=== PATIENT | female | born 1940 | race African-American/Black ===

== ENCOUNTER 2019-08-13 15:08 | Inpatient (IN) ==
[2019-08-13 16:01] LABS: Red Cell Distribution Width 13.8 % (9.3-17.3)
[2019-08-13 16:09] LABS: Basophils % 0.6 % (0.0-0.8); Eosinophils # 0.2 10*3/uL (0.0-0.87); Eosinophils % 3.6 % (0.00-10.9); Hematocrit 34.1 VOL% (35.7-47.0); Hemoglobin 10.1 GM/DL (12.0-16.0); Immature Granulocytes % 0.4 %; Immature Granulocytes Absolute 0.02 #; Lymphocytes # 1.1 10*3/uL (1.4-4.0); Lymphocytes % 20.1 % (21.3-54.2); Mean Corpuscular HGB Conc 29.6 GM/DL (32-36); Mean Corpuscular Volume 86.3 FL (87-102); Mean Platelet Volume 11.6 FL (9.6-12.0); Monocytes % 9.5 % (1.7-12.7); Neutrophils % 65.8 % (38.7-73.9); Platelet Count 185 T/CUMM (130-400); Red Blood Count 3.95 MC/CUMM (3.8-5.5); White Blood Count 5.3 T/CUMM (4-12)
[2019-08-13 16:15] LABS: Calcium 8.4 MG/DL (8.5-10.1); Osmolality,Calculated 294.4 MOS/KG (273-304)
[2019-08-13 17:09] LABS: Apearance,Urine CLOUDY (Clear); Bacteria,Urine Occasional /HPF (Few); Bilirubin,Urine Negative (Negative); Blood, Urine Large mg/dL (Negative); Glucose,Urine (UA) Negative (Negative); Hyaline Casts,Urine 1 /LPF (0-3); Ketones,Urine Negative (Negative); Mucus,Urine Occasional /LPF (Occasional); Nitrite,Urine Negative (Negative); Protein,Urine 100 MG/DL; RBC,Urine 82 /HPF (0-4); Squamous Epithelial Cell,Urine Occasional /HPF (0-10); Urine Color Yellow (Yellow); Urine Specific Gravity 1.015 (1.001-1.035); Urine Urobilinogen < 2.0 EU/DL (0.2-1.0); WBC,Urine 22 /HPF (0-6)
[2019-08-13] MEDS ORDERED: cefTRIAXone 250 MG VIAL IV STA (17:19)
[2019-08-13] MEDS ORDERED: ONDANSETRON 4 MG/2 ML VIAL IV PRN (19:25)
[2019-08-13] MEDS ORDERED: ACETAMINOPHEN 325 MG TABLET PO PRN (19:25)
[2019-08-13] MEDS ORDERED: ALBUTEROL 2.5 MG/3 ML NEB RESP TX PRN (19:26)
[2019-08-13] MEDS ORDERED: GLUCAGON 1 MG VIAL IM PRN (19:28)
[2019-08-13] MEDS ORDERED: DEXTROSE 50% 25 GM/50 ML VIAL IV PRN (19:28)
[2019-08-13] MEDS ORDERED: NON-FORMULARY MEDICATION (Albuterol Sulfate [Proair Hfa] 2 PUFF) INH PRN (19:29)
[2019-08-13] MEDS ORDERED: ENOXAPARIN 30 MG/0.3 ML SYRINGE SUBCUT SCH (21:00)
[2019-08-13] MEDS: carvediloL 12.5 MG TABLET PO SCH (22:38)
[2019-08-13] MEDS: guaiFENesin/DM ER 600-30 MG TABLET PO SCH (22:38)
[2019-08-13] MEDS: SODIUM CHLORIDE 0.45% 1,000 ML IV SCH (22:39)
[2019-08-13] MEDS: PIPERACILLIN/TAZOBACTAM 3,375 MG in SODIUM CHLORIDE 0.9% 100 ML IV SCH (22:39)
[2019-08-14] MEDS: PIPERACILLIN/TAZOBACTAM 3,375 MG in SODIUM CHLORIDE 0.9% 100 ML IV SCH ×3 (05:05→21:02)
[2019-08-14 05:52] LABS: Basophils % 0.8 % (0.0-0.8); Eosinophils # 0.2 10*3/uL (0.0-0.87); Eosinophils % 3.8 % (0.00-10.9); Hematocrit 32.3 VOL% (35.7-47.0); Immature Granulocytes % 0.6 %; Immature Granulocytes Absolute 0.03 #; Lymphocytes # 1.2 10*3/uL (1.4-4.0); Lymphocytes % 24.2 % (21.3-54.2); Mean Corpuscular HGB Conc 28.8 GM/DL (32-36); Mean Corpuscular Volume 86.4 FL (87-102); Mean Platelet Volume 11.8 FL (9.6-12.0); Monocytes % 10.7 % (1.7-12.7); Neutrophils % 59.9 % (38.7-73.9); Platelet Count 208 T/CUMM (130-400); Red Blood Count 3.74 MC/CUMM (3.8-5.5); Red Cell Distribution Width 13.7 % (9.3-17.3)
[2019-08-14 06:15] LABS: Albumin 2.6 G/DL (3.4-5.0); Bilirubin,Total 0.7 MG/DL (0.2-1.0); Calcium 8.3 MG/DL (8.5-10.1); Osmolality,Calculated 288.4 MOS/KG (273-304); Risk Ratio 3.17; Total Protein 5.9 G/DL (6.4-8.3); VLDL CHOLESTEROL 14.8 MG/DL
[2019-08-14 06:22] LABS: Hemoglobin 9.5 GM/DL (12.0-16.0)
[2019-08-14 06:34] LABS: Acanthocytes Few; Hypochromasia 1+; Microcytosis 1+; Ovalocytes Few
[2019-08-14 06:35] LABS: Platelet Estimate Normal
[2019-08-14] MEDS: amLODIPine 10 MG TABLET PO SCH (08:53)
[2019-08-14] MEDS: ATORVASTATIN 80 MG TABLET PO SCH (08:53)
[2019-08-14] MEDS: carvediloL 12.5 MG TABLET PO SCH ×2 (08:54→17:35)
[2019-08-14] MEDS: APIXABAN 5 MG TABLET PO SCH ×2 (08:54→21:03)
[2019-08-14] MEDS: PANTOPRAZOLE 40 MG TABLET PO SCH (08:54)
[2019-08-14] MEDS: FUROSEMIDE 20 MG/2 ML VIAL IV SCH ×2 (08:54→17:35)
[2019-08-14] MEDS: guaiFENesin/DM ER 600-30 MG TABLET PO SCH ×2 (08:54→21:03)
[2019-08-14] MEDS: SODIUM CHLORIDE 0.45% 1,000 ML IV SCH (20:36)
[2019-08-15] MEDS: PIPERACILLIN/TAZOBACTAM 3,375 MG in SODIUM CHLORIDE 0.9% 100 ML IV SCH ×3 (04:15→20:24)
[2019-08-15 06:35] LABS: Basophils % 0.7 % (0.0-0.8); Eosinophils # 0.2 10*3/uL (0.0-0.87); Eosinophils % 4.4 % (0.00-10.9); Hematocrit 33.1 VOL% (35.7-47.0); Hemoglobin 9.7 GM/DL (12.0-16.0); Immature Granulocytes % 0.2 %; Immature Granulocytes Absolute 0.01 #; Lymphocytes # 1.3 10*3/uL (1.4-4.0); Lymphocytes % 29.6 % (21.3-54.2); Mean Corpuscular HGB Conc 29.3 GM/DL (32-36); Mean Corpuscular Volume 86.9 FL (87-102); Mean Platelet Volume 11.9 FL (9.6-12.0); Monocytes % 10.6 % (1.7-12.7); Neutrophils % 54.5 % (38.7-73.9); Platelet Count 187 T/CUMM (130-400); Red Blood Count 3.81 MC/CUMM (3.8-5.5); Red Cell Distribution Width 13.7 % (9.3-17.3); White Blood Count 4.3 T/CUMM (4-12)
[2019-08-15 06:41] LABS: Calcium 8.1 MG/DL (8.5-10.1); Osmolality,Calculated 290.1 MOS/KG (273-304)
[2019-08-15] MEDS ORDERED: SODIUM CHLORIDE 0.45% 1,000 ML IV SCH (08:00)
[2019-08-15] MEDS: APIXABAN 5 MG TABLET PO SCH ×2 (09:38→20:24)
[2019-08-15] MEDS: ATORVASTATIN 80 MG TABLET PO SCH (09:38)
[2019-08-15] MEDS: carvediloL 12.5 MG TABLET PO SCH ×2 (09:39→17:54)
[2019-08-15] MEDS: amLODIPine 10 MG TABLET PO SCH (09:39)
[2019-08-15] MEDS: guaiFENesin/DM ER 600-30 MG TABLET PO SCH ×2 (09:39→20:24)
[2019-08-15] MEDS: FUROSEMIDE 20 MG/2 ML VIAL IV SCH ×2 (09:39→15:30)
[2019-08-15] MEDS: PANTOPRAZOLE 40 MG TABLET PO SCH (09:39)
[2019-08-15] MEDS: DEXTROSE 5% NACL 0.45% 1,000 ML IV SCH ×2 (09:45→22:23)
[2019-08-16] MEDS: PIPERACILLIN/TAZOBACTAM 3,375 MG in SODIUM CHLORIDE 0.9% 100 ML IV SCH ×3 (05:14→20:38)
[2019-08-16 06:13] LABS: Calcium 6.2 MG/DL (8.5-10.1); Osmolality,Calculated 316.7 MOS/KG (273-304)
[2019-08-16 06:50] LABS: Basophils % 0.8 % (0.0-0.8); Eosinophils # 0.3 10*3/uL (0.0-0.87); Eosinophils % 5.3 % (0.00-10.9); Hematocrit 30.3 VOL% (35.7-47.0); Immature Granulocytes % 0.4 %; Immature Granulocytes Absolute 0.02 #; Lymphocytes # 1.7 10*3/uL (1.4-4.0); Lymphocytes % 35.1 % (21.3-54.2); Mean Corpuscular HGB Conc 29.7 GM/DL (32-36); Mean Corpuscular Volume 86.6 FL (87-102); Mean Platelet Volume 10.7 FL (9.6-12.0); Monocytes % 11.2 % (1.7-12.7); Neutrophils % 47.2 % (38.7-73.9); Platelet Count 186 T/CUMM (130-400); Red Cell Distribution Width 13.9 % (9.3-17.3); White Blood Count 4.7 T/CUMM (4-12)
[2019-08-16 07:05] LABS: Calcium 7.7 MG/DL (8.5-10.1); Osmolality,Calculated 289.4 MOS/KG (273-304)
[2019-08-16] MEDS: ATORVASTATIN 80 MG TABLET PO SCH (08:57)
[2019-08-16] MEDS: amLODIPine 10 MG TABLET PO SCH (08:57)
[2019-08-16] MEDS: carvediloL 12.5 MG TABLET PO SCH ×2 (08:57→17:59)
[2019-08-16] MEDS: PANTOPRAZOLE 40 MG TABLET PO SCH (08:57)
[2019-08-16] MEDS: APIXABAN 5 MG TABLET PO SCH ×2 (08:57→20:38)
[2019-08-16] MEDS: guaiFENesin/DM ER 600-30 MG TABLET PO SCH ×2 (08:57→20:38)
[2019-08-16] MEDS ORDERED: FUROSEMIDE 20 MG TABLET PO SCH (09:00)
[2019-08-16] MEDS: DEXTROSE 5% NACL 0.45% 1,000 ML IV SCH ×2 (12:52→20:39)
[2019-08-17] MEDS: PIPERACILLIN/TAZOBACTAM 3,375 MG in SODIUM CHLORIDE 0.9% 100 ML IV SCH ×3 (04:53→20:53)
[2019-08-17] MEDS: DEXTROSE 5% NACL 0.45% 1,000 ML IV SCH (04:54)
[2019-08-17 06:40] LABS: Calcium 7.6 MG/DL (8.5-10.1); Osmolality,Calculated 289.4 MOS/KG (273-304)
[2019-08-17] MEDS: APIXABAN 5 MG TABLET PO SCH ×2 (08:46→20:48)
[2019-08-17] MEDS: PANTOPRAZOLE 40 MG TABLET PO SCH (08:46)
[2019-08-17] MEDS: ATORVASTATIN 80 MG TABLET PO SCH (08:47)
[2019-08-17] MEDS: carvediloL 12.5 MG TABLET PO SCH ×2 (08:47→16:02)
[2019-08-17] MEDS: amLODIPine 10 MG TABLET PO SCH (08:47)
[2019-08-17] MEDS: guaiFENesin/DM ER 600-30 MG TABLET PO SCH ×2 (08:47→20:48)
[2019-08-18] MEDS: PIPERACILLIN/TAZOBACTAM 3,375 MG in SODIUM CHLORIDE 0.9% 100 ML IV SCH ×2 (03:14→12:57)
[2019-08-18 05:12] LABS: Basophils # 0.1 10*3/uL (0.0-0.2); Basophils % 0.9 % (0.0-0.8); Eosinophils # 0.4 10*3/uL (0.0-0.87); Eosinophils % 7.4 % (0.00-10.9); Hematocrit 31.5 VOL% (35.7-47.0); Hemoglobin 9.4 GM/DL (12.0-16.0); Immature Granulocytes % 0.6 %; Immature Granulocytes Absolute 0.03 #; Lymphocytes # 1.6 10*3/uL (1.4-4.0); Lymphocytes % 29.5 % (21.3-54.2); Mean Corpuscular HGB Conc 29.8 GM/DL (32-36); Mean Corpuscular Volume 86.1 FL (87-102); Mean Platelet Volume 11.3 FL (9.6-12.0); Monocytes % 10.6 % (1.7-12.7); Platelet Count 217 T/CUMM (130-400); Red Blood Count 3.66 MC/CUMM (3.8-5.5); Red Cell Distribution Width 13.8 % (9.3-17.3); White Blood Count 5.4 T/CUMM (4-12)
[2019-08-18 05:37] LABS: Calcium 7.7 MG/DL (8.5-10.1); Osmolality,Calculated 285.4 MOS/KG (273-304)
[2019-08-18] MEDS: carvediloL 12.5 MG TABLET PO SCH ×2 (09:16→17:00)
[2019-08-18] MEDS: APIXABAN 5 MG TABLET PO SCH ×2 (09:16→21:07)
[2019-08-18] MEDS: amLODIPine 10 MG TABLET PO SCH (09:16)
[2019-08-18] MEDS: ATORVASTATIN 80 MG TABLET PO SCH (09:16)
[2019-08-18] MEDS: PANTOPRAZOLE 40 MG TABLET PO SCH (09:16)
[2019-08-18] MEDS: guaiFENesin/DM ER 600-30 MG TABLET PO SCH ×2 (09:20→21:07)
[2019-08-18] MEDS: AMOXICILLIN/CLAV 500 MG TABLET PO SCH (17:00)
[2019-08-19 05:39] LABS: Basophils % 0.6 % (0.0-0.8); Eosinophils # 0.4 10*3/uL (0.0-0.87); Eosinophils % 6.9 % (0.00-10.9); Hemoglobin 9.8 GM/DL (12.0-16.0); Immature Granulocytes % 0.4 %; Immature Granulocytes Absolute 0.02 #; Lymphocytes # 1.4 10*3/uL (1.4-4.0); Lymphocytes % 28.3 % (21.3-54.2); Mean Corpuscular HGB Conc 29.7 GM/DL (32-36); Mean Corpuscular Volume 85.7 FL (87-102); Mean Platelet Volume 11.5 FL (9.6-12.0); Monocytes % 10.8 % (1.7-12.7); Platelet Count 243 T/CUMM (130-400); Red Blood Count 3.85 MC/CUMM (3.8-5.5); Red Cell Distribution Width 13.9 % (9.3-17.3); White Blood Count 5.1 T/CUMM (4-12)
[2019-08-19 06:00] LABS: Osmolality,Calculated 287.3 MOS/KG (273-304)
[2019-08-19] MEDS: guaiFENesin/DM ER 600-30 MG TABLET PO SCH ×2 (08:44→21:14)
[2019-08-19] MEDS: AMOXICILLIN/CLAV 500 MG TABLET PO SCH (08:45)
[2019-08-19] MEDS: PANTOPRAZOLE 40 MG TABLET PO SCH (08:45)
[2019-08-19] MEDS: carvediloL 12.5 MG TABLET PO SCH ×2 (08:45→17:04)
[2019-08-19] MEDS: amLODIPine 10 MG TABLET PO SCH (08:45)
[2019-08-19] MEDS: ATORVASTATIN 80 MG TABLET PO SCH (08:45)
[2019-08-19] MEDS: APIXABAN 5 MG TABLET PO SCH ×2 (08:45→21:14)
[2019-08-19] MEDS: DEXTROSE 5% NACL 0.45% 1,000 ML IV SCH (10:43)
[2019-08-19] MEDS: ESCITALOPRAM 10 MG TABLET PO SCH (21:14)
[2019-08-20] MEDS: DEXTROSE 5% NACL 0.45% 1,000 ML IV SCH ×2 (00:30→13:55)
[2019-08-20 05:34] LABS: Basophils % 0.4 % (0.0-0.8); Eosinophils # 0.2 10*3/uL (0.0-0.87); Eosinophils % 4.2 % (0.00-10.9); Hematocrit 30.3 VOL% (35.7-47.0); Hemoglobin 8.9 GM/DL (12.0-16.0); Immature Granulocytes % 0.4 %; Immature Granulocytes Absolute 0.02 #; Lymphocytes # 1.2 10*3/uL (1.4-4.0); Lymphocytes % 21.5 % (21.3-54.2); Mean Corpuscular HGB Conc 29.4 GM/DL (32-36); Mean Corpuscular Volume 85.4 FL (87-102); Mean Platelet Volume 11.4 FL (9.6-12.0); Monocytes % 10.8 % (1.7-12.7); Neutrophils % 62.7 % (38.7-73.9); Platelet Count 226 T/CUMM (130-400); Red Blood Count 3.55 MC/CUMM (3.8-5.5); Red Cell Distribution Width 13.8 % (9.3-17.3); White Blood Count 5.5 T/CUMM (4-12)
[2019-08-20 05:56] LABS: Calcium 7.8 MG/DL (8.5-10.1); Osmolality,Calculated 286.7 MOS/KG (273-304)
[2019-08-20] MEDS: APIXABAN 5 MG TABLET PO SCH ×2 (08:24→21:08)
[2019-08-20] MEDS: guaiFENesin/DM ER 600-30 MG TABLET PO SCH ×2 (08:24→21:08)
[2019-08-20] MEDS: amLODIPine 10 MG TABLET PO SCH (08:24)
[2019-08-20] MEDS: carvediloL 12.5 MG TABLET PO SCH ×2 (08:25→17:45)
[2019-08-20] MEDS: ATORVASTATIN 80 MG TABLET PO SCH (08:25)
[2019-08-20] MEDS: PANTOPRAZOLE 40 MG TABLET PO SCH (08:25)
[2019-08-20] MEDS: ESCITALOPRAM 10 MG TABLET PO SCH (21:08)
[2019-08-21] MEDS: DEXTROSE 5% NACL 0.45% 1,000 ML IV SCH (02:36)
[2019-08-21 07:01] LABS: Basophils % 0.8 % (0.0-0.8); Eosinophils # 0.2 10*3/uL (0.0-0.87); Eosinophils % 4.7 % (0.00-10.9); Hematocrit 29.8 VOL% (35.7-47.0); Hemoglobin 8.8 GM/DL (12.0-16.0); Immature Granulocytes % 0.6 %; Immature Granulocytes Absolute 0.03 #; Lymphocytes # 1.3 10*3/uL (1.4-4.0); Mean Corpuscular HGB Conc 29.5 GM/DL (32-36); Mean Corpuscular Volume 85.4 FL (87-102); Mean Platelet Volume 11.6 FL (9.6-12.0); Monocytes % 10.3 % (1.7-12.7); Neutrophils % 56.6 % (38.7-73.9); Platelet Count 240 T/CUMM (130-400); Red Blood Count 3.49 MC/CUMM (3.8-5.5); Red Cell Distribution Width 13.8 % (9.3-17.3); White Blood Count 4.9 T/CUMM (4-12)
[2019-08-21 07:32] LABS: Calcium 7.7 MG/DL (8.5-10.1); Osmolality,Calculated 288.4 MOS/KG (273-304)
[2019-08-21] MEDS: guaiFENesin/DM ER 600-30 MG TABLET PO SCH ×2 (08:20→21:12)
[2019-08-21] MEDS: carvediloL 12.5 MG TABLET PO SCH ×2 (08:21→17:14)
[2019-08-21] MEDS: ATORVASTATIN 80 MG TABLET PO SCH (08:21)
[2019-08-21] MEDS: amLODIPine 10 MG TABLET PO SCH (08:21)
[2019-08-21] MEDS: PANTOPRAZOLE 40 MG TABLET PO SCH (08:21)
[2019-08-21] MEDS: APIXABAN 5 MG TABLET PO SCH ×2 (08:21→21:12)
[2019-08-21] MEDS: DESITIN 4OZ/NYSTATIN 15 GRAM MIXTURE PASTE TOP SCH ×2 (08:49→21:12)
[2019-08-21] MEDS: ESCITALOPRAM 10 MG TABLET PO SCH (21:12)
[2019-08-22 06:56] LABS: Calcium 8.1 MG/DL (8.5-10.1); Osmolality,Calculated 283.4 MOS/KG (273-304)
[2019-08-22] MEDS: amLODIPine 10 MG TABLET PO SCH (08:39)
[2019-08-22] MEDS: APIXABAN 5 MG TABLET PO SCH (08:39)
[2019-08-22] MEDS: ATORVASTATIN 80 MG TABLET PO SCH (08:39)
[2019-08-22] MEDS: guaiFENesin/DM ER 600-30 MG TABLET PO SCH (08:39)
[2019-08-22] MEDS: carvediloL 12.5 MG TABLET PO SCH (08:39)
[2019-08-22] MEDS: PANTOPRAZOLE 40 MG TABLET PO SCH (08:39)
[2019-08-22] MEDS: DESITIN 4OZ/NYSTATIN 15 GRAM MIXTURE PASTE TOP SCH (08:42)
[2019-08-22 12:24] VITALS: BP 126/71
== END 2019-08-22 16:02 | disposition home health service (06) | DRG 637 ==
LOC: EDBD → EDUNIT# → N.ED 15:08 → SUATTDRO 19:28 → N.EDINP 19:28 → N.5E 19:59
PROVIDERS: ADMIT Internal Medicine; ATTEND Internal Medicine

== ENCOUNTER 2019-08-26 11:59 | Observation (INO) ==
[2019-08-26 13:25] LABS: Basophils # 0.1 10*3/uL (0.0-0.2); Basophils % 0.9 % (0.0-0.8); Eosinophils # 0.3 10*3/uL (0.0-0.87); Eosinophils % 4.6 % (0.00-10.9); Hemoglobin 9.7 GM/DL (12.0-16.0); Immature Granulocytes % 0.4 %; Immature Granulocytes Absolute 0.02 #; Lymphocytes # 1.7 10*3/uL (1.4-4.0); Lymphocytes % 29.8 % (21.3-54.2); Mean Corpuscular HGB Conc 29.4 GM/DL (32-36); Mean Corpuscular Volume 84.8 FL (87-102); Mean Platelet Volume 10.6 FL (9.6-12.0); Monocytes % 8.3 % (1.7-12.7); Platelet Count 309 T/CUMM (130-400); Red Blood Count 3.89 MC/CUMM (3.8-5.5); Red Cell Distribution Width 14.2 % (9.3-17.3); White Blood Count 5.6 T/CUMM (4-12)
[2019-08-26 13:45] LABS: Albumin 2.4 G/DL (3.4-5.0); Bilirubin,Total 0.9 MG/DL (0.2-1.0); Calcium 8.5 MG/DL (8.5-10.1); Osmolality,Calculated 288.3 MOS/KG (273-304); Total Protein 6.3 G/DL (6.4-8.3)
[2019-08-26] MEDS ORDERED: ONDANSETRON 4 MG/2 ML VIAL IV PRN (15:38)
[2019-08-26] MEDS ORDERED: ACETAMINOPHEN 325 MG TABLET PO PRN (15:38)
[2019-08-26] MEDS ORDERED: hydrALAZINE 20 MG/1 ML VIAL IV PRN (16:20)
[2019-08-26] MEDS ORDERED: GLUCAGON 1 MG VIAL IM PRN (16:21)
[2019-08-26] MEDS ORDERED: DEXTROSE 10% 25 GM/250 ML BAG IV PRN (16:21)
[2019-08-26] MEDS ORDERED: MAGNESIUM SULF RIDER 4 GM in PREMIX 1 EACH IV PRN (16:22)
[2019-08-26] MEDS ORDERED: MAGNESIUM SULF RIDER 2 GM in PREMIX 1 EACH IV PRN (16:22)
[2019-08-26] MEDS: INSULIN LISPRO 100 UNIT/ML SUBCUT SCH ×2 (17:43→21:47)
[2019-08-26 18:46] LABS: Apearance,Urine CLEAR (Clear); Bacteria,Urine Occasional /HPF (Few); Bilirubin,Urine Negative (Negative); Blood, Urine Small mg/dL (Negative); Glucose,Urine (UA) Negative (Negative); Hyaline Casts,Urine 1 /LPF (0-3); Ketones,Urine Negative (Negative); Mucus,Urine Occasional /LPF (Occasional); Nitrite,Urine Negative (Negative); Protein,Urine 30 MG/DL; RBC,Urine 2 /HPF (0-4); Squamous Epithelial Cell,Urine Occasional /HPF (0-10); Urine Color Yellow (Yellow); Urine Specific Gravity 1.012 (1.001-1.035); Urine Urobilinogen < 2.0 EU/DL (0.2-1.0); WBC,Urine 3 /HPF (0-6)
[2019-08-26] MEDS: APIXABAN 5 MG TABLET PO SCH (21:46)
[2019-08-26] MEDS: ESCITALOPRAM 10 MG TABLET PO SCH (21:46)
[2019-08-26] MEDS: ATORVASTATIN 80 MG TABLET PO SCH (21:46)
[2019-08-26] MEDS: carvediloL 12.5 MG TABLET PO SCH (21:46)
[2019-08-27 06:09] LABS: Basophils % 0.6 % (0.0-0.8); Eosinophils # 0.3 10*3/uL (0.0-0.87); Eosinophils % 5.6 % (0.00-10.9); Hematocrit 31.4 VOL% (35.7-47.0); Hemoglobin 9.3 GM/DL (12.0-16.0); Immature Granulocytes % 0.6 %; Immature Granulocytes Absolute 0.03 #; Lymphocytes # 1.2 10*3/uL (1.4-4.0); Lymphocytes % 26.3 % (21.3-54.2); Mean Corpuscular HGB Conc 29.6 GM/DL (32-36); Mean Corpuscular Volume 85.6 FL (87-102); Mean Platelet Volume 10.5 FL (9.6-12.0); Monocytes % 10.3 % (1.7-12.7); Neutrophils % 56.6 % (38.7-73.9); Platelet Count 281 T/CUMM (130-400); Red Blood Count 3.67 MC/CUMM (3.8-5.5); White Blood Count 4.7 T/CUMM (4-12)
[2019-08-27 06:35] LABS: Albumin 2.1 G/DL (3.4-5.0); Bilirubin,Total 0.6 MG/DL (0.2-1.0); Calcium 8.4 MG/DL (8.5-10.1); Osmolality,Calculated 283.5 MOS/KG (273-304); Thyroid Stimulating Hormone 1.66 uIU/ml (0.358-3.74); Total Protein 5.7 G/DL (6.4-8.3)
[2019-08-27] MEDS: FUROSEMIDE 40 MG/4 ML VIAL IV SCH (08:16)
[2019-08-27] MEDS: APIXABAN 5 MG TABLET PO SCH ×2 (08:16→20:51)
[2019-08-27] MEDS: carvediloL 12.5 MG TABLET PO SCH ×2 (08:22→20:51)
[2019-08-27] MEDS: PANTOPRAZOLE 40 MG TABLET PO SCH (08:22)
[2019-08-27] MEDS: amLODIPine 10 MG TABLET PO SCH (08:23)
[2019-08-27] MEDS: INSULIN LISPRO 100 UNIT/ML SUBCUT SCH ×4 (08:23→20:57)
[2019-08-27] MEDS: ATORVASTATIN 80 MG TABLET PO SCH (20:51)
[2019-08-27] MEDS: ESCITALOPRAM 10 MG TABLET PO SCH (20:51)
[2019-08-28 05:09] LABS: Basophils % 0.6 % (0.0-0.8); Eosinophils # 0.3 10*3/uL (0.0-0.87); Eosinophils % 5.5 % (0.00-10.9); Hematocrit 29.8 VOL% (35.7-47.0); Hemoglobin 8.6 GM/DL (12.0-16.0); Immature Granulocytes % 0.4 %; Immature Granulocytes Absolute 0.02 #; Lymphocytes # 1.4 10*3/uL (1.4-4.0); Lymphocytes % 27.9 % (21.3-54.2); Mean Corpuscular HGB Conc 28.9 GM/DL (32-36); Mean Corpuscular Volume 86.6 FL (87-102); Mean Platelet Volume 10.8 FL (9.6-12.0); Monocytes % 8.6 % (1.7-12.7); Platelet Count 280 T/CUMM (130-400); Red Blood Count 3.44 MC/CUMM (3.8-5.5); Red Cell Distribution Width 14.1 % (9.3-17.3); White Blood Count 4.9 T/CUMM (4-12)
[2019-08-28 05:43] LABS: Ovalocytes Slight; Platelet Estimate Normal; Polychromasia Slight; Schistocytes Few
[2019-08-28 05:46] LABS: Albumin 2.1 G/DL (3.4-5.0); Bilirubin,Total 0.4 MG/DL (0.2-1.0); Calcium 8.4 MG/DL (8.5-10.1); Osmolality,Calculated 283.5 MOS/KG (273-304); Total Protein 5.7 G/DL (6.4-8.3)
[2019-08-28] MEDS: INSULIN LISPRO 100 UNIT/ML SUBCUT SCH ×2 (08:17→12:06)
[2019-08-28] MEDS: APIXABAN 5 MG TABLET PO SCH (08:19)
[2019-08-28] MEDS: carvediloL 12.5 MG TABLET PO SCH (08:19)
[2019-08-28] MEDS: FUROSEMIDE 40 MG/4 ML VIAL IV SCH (08:19)
[2019-08-28] MEDS: PANTOPRAZOLE 40 MG TABLET PO SCH (08:19)
[2019-08-28] MEDS: amLODIPine 10 MG TABLET PO SCH (08:19)
[2019-08-28 12:09] VITALS: BP 130/68
[2019-08-28] MEDS ORDERED: SODIUM POLYSTYRENE SULFATE 15 GM/60 ML BOTTLE PO ONE (12:57)
== END 2019-08-28 18:00 | disposition home health service (06) ==
LOC: EDUNIT# → N.5E 11:59 → N.ED 11:59 → SUATTDRO 16:32 → N.5E 17:08
PROVIDERS: ADMIT Internal Medicine; ATTEND Internal Medicine

== ENCOUNTER 2019-11-30 16:17 | Inpatient (IN) ==
[2019-11-30 17:12] LABS: Basophils % 0.4 % (0.0-0.8); Eosinophils # 0.2 10*3/uL (0.0-0.87); Eosinophils % 2.8 % (0.00-10.9); Hematocrit 32.9 VOL% (35.7-47.0); Hemoglobin 9.8 GM/DL (12.0-16.0); Immature Granulocytes % 0.4 %; Immature Granulocytes Absolute 0.02 #; Lymphocytes # 0.9 10*3/uL (1.4-4.0); Lymphocytes % 16.4 % (21.3-54.2); Mean Corpuscular HGB Conc 29.8 GM/DL (32-36); Mean Corpuscular Volume 82.5 FL (87-102); Mean Platelet Volume 11.1 FL (9.6-12.0); Monocytes % 6.3 % (1.7-12.7); Neutrophils % 73.7 % (38.7-73.9); Platelet Count 285 T/CUMM (130-400); Red Blood Count 3.99 MC/CUMM (3.8-5.5); Red Cell Distribution Width 16.8 % (9.3-17.3); White Blood Count 5.4 T/CUMM (4-12)
[2019-11-30 17:32] LABS: INR 1.1; PT Patient Result 11.9 SECS (9.6-12.2)
[2019-11-30 17:33] LABS: Albumin 2.3 G/DL (3.4-5.0); Bilirubin,Total 0.4 MG/DL (0.2-1.0); Calcium 8.6 MG/DL (8.5-10.1); Osmolality,Calculated 285.1 MOS/KG (273-304); Total Protein 6.8 G/DL (6.4-8.3)
[2019-11-30 17:39] LABS: ABG Base Excess 0.8 MMOL/L (-2.5-2.5); ABG HCO3 25.1 MMOL/L (20-26); ABG Oxygen Saturation 96.4 % (95-100); ABG PCO2 48.1 MM HG (35-48); ABG PH 7.353 (7.35-7.45); ABG PO2 82.9 MM HG (80-95); ABG TCO2 24.7 MMOL/L (23-27)
[2019-11-30] MEDS ORDERED: FUROSEMIDE 100 MG/10 ML VIAL IV STA (17:40)
[2019-11-30] MEDS ORDERED: ALBUTEROL 2.5 MG/3 ML NEB RESP TX PRN (20:16)
[2019-11-30] MEDS ORDERED: INFLUENZA VIRUS VACCINE 0.5 ML SYRINGE IM ONE (21:55)
[2019-11-30 22:23] LABS: Troponin I < 0.015 NG/ML (0.00-0.045)
[2019-11-30] MEDS: ATORVASTATIN 80 MG TABLET PO SCH (22:25)
[2019-11-30] MEDS: ESCITALOPRAM 10 MG TABLET PO SCH (22:25)
[2019-11-30] MEDS: PIPERACILLIN/TAZOBACTAM 3,375 MG in SODIUM CHLORIDE 0.9% 100 ML IV SCH (22:26)
[2019-11-30] MEDS: GABAPENTIN 300 MG CAPSULE PO SCH (22:26)
[2019-11-30] MEDS: APIXABAN 5 MG TABLET PO SCH (22:26)
[2019-11-30] MEDS: carvediloL 12.5 MG TABLET PO SCH (22:26)
[2019-11-30 23:06] LABS: Apearance,Urine CLOUDY (Clear); Bilirubin,Urine Negative (Negative); Blood, Urine Small mg/dL (Negative); Glucose,Urine (UA) Negative (Negative); Ketones,Urine Negative (Negative); Nitrite,Urine Negative (Negative); Protein,Urine Negative; RBC,Urine 12 /HPF (0-4); Urine Color Yellow (Yellow); Urine Specific Gravity 1.009 (1.001-1.035); Urine Urobilinogen < 2.0 EU/DL (0.2-1.0); WBC,Urine 676 /HPF (0-6)
[2019-12-01] MEDS: ALBUTEROL/IPRATROPIUM 3 ML NEB RESP TX SCH ×4 (00:32→19:15)
[2019-12-01] MEDS: PIPERACILLIN/TAZOBACTAM 3,375 MG in SODIUM CHLORIDE 0.9% 100 ML IV SCH ×3 (05:29→21:20)
[2019-12-01 07:13] LABS: Basophils % 0.6 % (0.0-0.8); Eosinophils # 0.2 10*3/uL (0.0-0.87); Eosinophils % 3.5 % (0.00-10.9); Hematocrit 30.1 VOL% (35.7-47.0); Hemoglobin 8.7 GM/DL (12.0-16.0); Immature Granulocytes % 0.8 %; Immature Granulocytes Absolute 0.04 #; Lymphocytes # 0.9 10*3/uL (1.4-4.0); Lymphocytes % 19.3 % (21.3-54.2); Mean Corpuscular HGB Conc 28.9 GM/DL (32-36); Mean Corpuscular Volume 85.3 FL (87-102); Mean Platelet Volume 11.3 FL (9.6-12.0); Monocytes % 9.7 % (1.7-12.7); Neutrophils % 66.1 % (38.7-73.9); Platelet Count 260 T/CUMM (130-400); Red Blood Count 3.53 MC/CUMM (3.8-5.5); Red Cell Distribution Width 16.9 % (9.3-17.3); White Blood Count 4.9 T/CUMM (4-12)
[2019-12-01 07:37] LABS: Albumin 1.9 G/DL (3.4-5.0); Bilirubin,Total 0.5 MG/DL (0.2-1.0); Calcium 8.3 MG/DL (8.5-10.1); Osmolality,Calculated 287.7 MOS/KG (273-304); Risk Ratio 2.38; Total Protein 5.9 G/DL (6.4-8.3); VLDL CHOLESTEROL 12.6 MG/DL
[2019-12-01 07:55] LABS: Troponin I < 0.015 NG/ML (0.00-0.045)
[2019-12-01 08:02] LABS: Hypochromasia 1+; Microcytosis 1+
[2019-12-01 08:03] LABS: Acanthocytes Few; Ovalocytes Slight; Platelet Estimate Normal; Polychromasia Slight
[2019-12-01] MEDS: GABAPENTIN 300 MG CAPSULE PO SCH ×2 (08:53→21:21)
[2019-12-01] MEDS: FUROSEMIDE 40 MG/4 ML VIAL IV SCH ×2 (08:53→16:09)
[2019-12-01] MEDS: PANTOPRAZOLE 40 MG TABLET PO SCH (08:54)
[2019-12-01] MEDS: APIXABAN 5 MG TABLET PO SCH ×2 (08:54→21:21)
[2019-12-01] MEDS: carvediloL 12.5 MG TABLET PO SCH ×2 (08:54→16:09)
[2019-12-01] MEDS: ATORVASTATIN 80 MG TABLET PO SCH (21:20)
[2019-12-01] MEDS: ESCITALOPRAM 10 MG TABLET PO SCH (21:21)
[2019-12-02] MEDS: ALBUTEROL/IPRATROPIUM 3 ML NEB RESP TX SCH ×4 (00:03→19:42)
[2019-12-02] MEDS: PIPERACILLIN/TAZOBACTAM 3,375 MG in SODIUM CHLORIDE 0.9% 100 ML IV SCH ×3 (04:40→21:31)
[2019-12-02 05:01] LABS: Basophils % 0.6 % (0.0-0.8); Eosinophils # 0.2 10*3/uL (0.0-0.87); Eosinophils % 3.5 % (0.00-10.9); Hematocrit 29.1 VOL% (35.7-47.0); Hemoglobin 8.5 GM/DL (12.0-16.0); Immature Granulocytes % 0.4 %; Immature Granulocytes Absolute 0.02 #; Lymphocytes % 18.5 % (21.3-54.2); Mean Corpuscular HGB Conc 29.2 GM/DL (32-36); Mean Corpuscular Volume 83.9 FL (87-102); Mean Platelet Volume 11.1 FL (9.6-12.0); Monocytes % 9.1 % (1.7-12.7); Neutrophils % 67.9 % (38.7-73.9); Platelet Count 259 T/CUMM (130-400); Red Blood Count 3.47 MC/CUMM (3.8-5.5); Red Cell Distribution Width 16.8 % (9.3-17.3); White Blood Count 5.4 T/CUMM (4-12)
[2019-12-02 05:10] LABS: Calcium 7.9 MG/DL (8.5-10.1); Osmolality,Calculated 284.8 MOS/KG (273-304)
[2019-12-02 06:20] LABS: Acanthocytes Moderate; Anisocytosis 1+; Ovalocytes 1+; Platelet Estimate Normal
[2019-12-02] MEDS: GABAPENTIN 300 MG CAPSULE PO SCH ×2 (08:29→21:28)
[2019-12-02] MEDS: FUROSEMIDE 40 MG/4 ML VIAL IV SCH ×2 (08:29→16:28)
[2019-12-02] MEDS: APIXABAN 5 MG TABLET PO SCH ×2 (08:29→21:28)
[2019-12-02] MEDS: PANTOPRAZOLE 40 MG TABLET PO SCH (08:29)
[2019-12-02] MEDS: carvediloL 12.5 MG TABLET PO SCH ×2 (08:29→16:28)
[2019-12-02] MEDS: methylPREDNISolone SOD SUC 40 MG/1 ML VIAL IV SCH ×2 (13:43→21:28)
[2019-12-02] MEDS: ESCITALOPRAM 10 MG TABLET PO SCH (21:28)
[2019-12-02] MEDS: ATORVASTATIN 80 MG TABLET PO SCH (21:28)
[2019-12-03] MEDS: ALBUTEROL/IPRATROPIUM 3 ML NEB RESP TX SCH ×4 (00:06→19:20)
[2019-12-03] MEDS: methylPREDNISolone SOD SUC 40 MG/1 ML VIAL IV SCH ×3 (04:35→20:49)
[2019-12-03] MEDS: PIPERACILLIN/TAZOBACTAM 3,375 MG in SODIUM CHLORIDE 0.9% 100 ML IV SCH ×3 (04:36→20:50)
[2019-12-03 05:56] LABS: Basophils % 0.2 % (0.0-0.8); Hematocrit 28.5 VOL% (35.7-47.0); Hemoglobin 8.5 GM/DL (12.0-16.0); Immature Granulocytes % 0.9 %; Immature Granulocytes Absolute 0.04 #; Lymphocytes # 0.5 10*3/uL (1.4-4.0); Lymphocytes % 11.7 % (21.3-54.2); Mean Corpuscular HGB Conc 29.8 GM/DL (32-36); Mean Corpuscular Volume 83.6 FL (87-102); Mean Platelet Volume 11.8 FL (9.6-12.0); Monocytes % 1.2 % (1.7-12.7); Platelet Count 262 T/CUMM (130-400); Red Blood Count 3.41 MC/CUMM (3.8-5.5); Red Cell Distribution Width 16.5 % (9.3-17.3); White Blood Count 4.3 T/CUMM (4-12)
[2019-12-03 06:07] LABS: Osmolality,Calculated 285.4 MOS/KG (273-304)
[2019-12-03] MEDS: FUROSEMIDE 40 MG/4 ML VIAL IV SCH ×2 (09:02→16:27)
[2019-12-03] MEDS: PANTOPRAZOLE 40 MG TABLET PO SCH (09:03)
[2019-12-03] MEDS: APIXABAN 5 MG TABLET PO SCH ×2 (09:03→20:52)
[2019-12-03] MEDS: carvediloL 12.5 MG TABLET PO SCH ×2 (09:03→16:27)
[2019-12-03] MEDS: GABAPENTIN 300 MG CAPSULE PO SCH ×2 (09:03→20:52)
[2019-12-03] MEDS: hydrALAZINE 10 MG TABLET PO SCH ×2 (12:41→20:52)
[2019-12-03] MEDS: ESCITALOPRAM 10 MG TABLET PO SCH (20:52)
[2019-12-03] MEDS: ATORVASTATIN 80 MG TABLET PO SCH (20:52)
[2019-12-04] MEDS: ALBUTEROL/IPRATROPIUM 3 ML NEB RESP TX SCH ×4 (00:09→19:52)
[2019-12-04] MEDS: methylPREDNISolone SOD SUC 40 MG/1 ML VIAL IV SCH (05:03)
[2019-12-04] MEDS: PIPERACILLIN/TAZOBACTAM 3,375 MG in SODIUM CHLORIDE 0.9% 100 ML IV SCH (05:05)
[2019-12-04 05:58] LABS: Basophils % 0.2 % (0.0-0.8); Hematocrit 29.3 VOL% (35.7-47.0); Hemoglobin 8.5 GM/DL (12.0-16.0); Immature Granulocytes Absolute 0.06 #; Lymphocytes # 0.6 10*3/uL (1.4-4.0); Lymphocytes % 9.5 % (21.3-54.2); Mean Corpuscular Volume 83.7 FL (87-102); Mean Platelet Volume 11.2 FL (9.6-12.0); Neutrophils % 86.3 % (38.7-73.9); Platelet Count 283 T/CUMM (130-400); Red Cell Distribution Width 16.4 % (9.3-17.3)
[2019-12-04 06:14] LABS: Calcium 7.8 MG/DL (8.5-10.1); Osmolality,Calculated 290.4 MOS/KG (273-304)
[2019-12-04] MEDS: PANTOPRAZOLE 40 MG TABLET PO SCH (10:01)
[2019-12-04] MEDS: ISOSORBIDE MONONITRATE 30 MG TABLET PO SCH (10:04)
[2019-12-04] MEDS: GABAPENTIN 300 MG CAPSULE PO SCH ×2 (10:04→20:40)
[2019-12-04] MEDS: carvediloL 12.5 MG TABLET PO SCH ×2 (10:04→17:37)
[2019-12-04] MEDS: hydrALAZINE 10 MG TABLET PO SCH ×2 (10:04→20:41)
[2019-12-04] MEDS: FUROSEMIDE 40 MG/4 ML VIAL IV SCH (10:05)
[2019-12-04] MEDS ORDERED: DEXTROSE 10% 250 ML BAG IV PRN (11:59)
[2019-12-04] MEDS ORDERED: GLUCAGON 1 MG VIAL IM PRN (11:59)
[2019-12-04] MEDS ORDERED: ERTAPENEM 500 MG in SODIUM CHLORIDE 0.9% 100 ML IV SCH (12:00)
[2019-12-04] MEDS: APIXABAN 5 MG TABLET PO SCH ×2 (14:19→20:41)
[2019-12-04] MEDS: INSULIN LISPRO 100 UNIT/ML SUBCUT SCH ×2 (17:37→20:41)
[2019-12-04] MEDS: ATORVASTATIN 80 MG TABLET PO SCH (20:40)
[2019-12-04] MEDS: ESCITALOPRAM 10 MG TABLET PO SCH (20:41)
[2019-12-05] MEDS: ALBUTEROL/IPRATROPIUM 3 ML NEB RESP TX SCH ×3 (01:43→12:30)
[2019-12-05 06:00] LABS: Eosinophils % 0.2 % (0.00-10.9); Hematocrit 27.1 VOL% (35.7-47.0); Hemoglobin 8.1 GM/DL (12.0-16.0); Immature Granulocytes % 0.9 %; Immature Granulocytes Absolute 0.05 #; Lymphocytes # 0.4 10*3/uL (1.4-4.0); Lymphocytes % 7.2 % (21.3-54.2); Mean Corpuscular HGB Conc 29.9 GM/DL (32-36); Mean Corpuscular Volume 82.1 FL (87-102); Mean Platelet Volume 11.8 FL (9.6-12.0); Neutrophils % 84.7 % (38.7-73.9); Platelet Count 254 T/CUMM (130-400); Red Cell Distribution Width 16.3 % (9.3-17.3); White Blood Count 5.8 T/CUMM (4-12)
[2019-12-05 06:17] LABS: Calcium 7.8 MG/DL (8.5-10.1); Osmolality,Calculated 291.1 MOS/KG (273-304)
[2019-12-05 06:28] LABS: Hypochromasia 1+; Lymphocytes 8 % (20-55); Ovalocytes Slight; Platelet Estimate Adequate; Segmented Neutrophils 87 % (50-85); Total Cells Counted 100
[2019-12-05] MEDS ORDERED: predniSONE 20 MG TABLET PO SCH (09:00)
[2019-12-05] MEDS ORDERED: FUROSEMIDE 40 MG TABLET PO SCH (09:00)
[2019-12-05] MEDS: GABAPENTIN 300 MG CAPSULE PO SCH (09:18)
[2019-12-05] MEDS: INSULIN LISPRO 100 UNIT/ML SUBCUT SCH ×3 (09:18→16:52)
[2019-12-05] MEDS: APIXABAN 5 MG TABLET PO SCH (09:18)
[2019-12-05] MEDS: ISOSORBIDE MONONITRATE 30 MG TABLET PO SCH (09:19)
[2019-12-05] MEDS: carvediloL 12.5 MG TABLET PO SCH ×2 (09:19→16:52)
[2019-12-05] MEDS: hydrALAZINE 10 MG TABLET PO SCH (09:19)
[2019-12-05] MEDS ORDERED: SODIUM CHLORIDE 0.9% 1,000 ML IV PRN (12:20)
[2019-12-05] MEDS ORDERED: FUROSEMIDE 40 MG/4 ML VIAL IV ONE (12:23)
[2019-12-05 17:59] VITALS: BP 117/52
[2019-12-05] MEDS ORDERED: hydrALAZINE 25 MG TABLET PO SCH (21:00)
== END 2019-12-05 18:50 | disposition home health service (06) | DRG 189 ==
LOC: EDUNIT# → EDBD → N.ED 16:17 → N.EDINP 20:07 → N.2E 21:14
PROVIDERS: ADMIT Internal Medicine; ATTEND Internal Medicine

== ENCOUNTER 2021-02-06 18:12 | Inpatient (IN) ==
[2021-02-06 19:00] LABS: Basophils % 0.2 % (0.0-0.8); Eosinophils # 0.1 10*3/uL (0.0-0.87); Eosinophils % 2.1 % (0.00-10.9); Hematocrit 18.7 VOL% (35.7-47.0); Immature Granulocytes % 0.4 %; Immature Granulocytes Absolute 0.02 #; Lymphocytes # 0.7 10*3/uL (1.4-4.0); Lymphocytes % 15.4 % (21.3-54.2); Mean Corpuscular Volume 83.1 FL (87-102); Mean Platelet Volume 12.1 FL (9.6-12.0); Monocytes % 13.9 % (1.7-12.7); Platelet Count 151 T/CUMM (130-400); Red Blood Count 2.25 MC/CUMM (3.8-5.5); Red Cell Distribution Width 14.9 % (9.3-17.3); White Blood Count 4.7 T/CUMM (4-12)
[2021-02-06 19:05] LABS: Hemoglobin 5.8 GM/DL (12.0-16.0)
[2021-02-06 19:22] LABS: Bilirubin,Total 0.7 MG/DL (0.2-1.0); Calcium 7.7 MG/DL (8.5-10.1); Osmolality,Calculated 300.7 MOS/KG (273-304); Potassium 5.4 MMOL/L (3.5-5.1); Total Protein 6.1 G/DL (6.4-8.2)
[2021-02-06] MEDS ORDERED: PANTOPRAZOLE INJ 80 MG in SODIUM CHLORIDE 0.9% 100 ML IV ONE (19:31)
[2021-02-06] MEDS ORDERED: PANTOPRAZOLE 40 MG VIAL IV ONE (19:42)
[2021-02-06] MEDS ORDERED: MAGNESIUM SULF RIDER 2 GM/50 ML PREMIX IV PRN (19:48)
[2021-02-06] MEDS ORDERED: MAGNESIUM SULF RIDER 4 GM/100 ML PREMIX IV PRN (19:48)
[2021-02-06] MEDS ORDERED: SODIUM CHLORIDE 0.9% 1,000 ML IV PRN ×2 (19:48→19:57)
[2021-02-06] MEDS ORDERED: ONDANSETRON 4 MG/2 ML VIAL IV PRN (19:48)
[2021-02-06] MEDS ORDERED: DEXTROSE 50% 25 GM/50 ML VIAL IV PRN (19:48)
[2021-02-06] MEDS ORDERED: GLUCAGON 1 MG VIAL IM PRN (19:48)
[2021-02-06 22:20] LABS: Amorphous Crystals,Urine Occasional /HPF (Few); Bilirubin,Urine Negative (Negative); Blood, Urine Negative (Negative); Glucose,Urine (UA) Negative (Negative); Ketones,Urine Negative (Negative); Mucus,Urine Many /LPF (Occasional); Nitrite,Urine Negative (Negative); Protein,Urine Negative; Urine Appearance CLOUDY (Clear); Urine Color Yellow (Yellow); Urine Specific Gravity 1.026 (1.001-1.035); Urine Urobilinogen < 2.0 EU/DL (0.2-1.0)
[2021-02-06] MEDS: INSULIN REGULAR 100 UNIT/ML SUBCUT SCH (22:24)
[2021-02-06] MEDS: PANTOPRAZOLE INJ 200 MG in SODIUM CHLORIDE 0.9% 250 ML IV SCH (23:50)
[2021-02-07] MEDS ORDERED: FUROSEMIDE 40 MG/4 ML VIAL IV ONE (05:31)
[2021-02-07 07:53] LABS: Albumin 1.8 G/DL (3.4-5.0); Bilirubin,Total 0.9 MG/DL (0.2-1.0); Calcium 7.8 MG/DL (8.5-10.1); Osmolality,Calculated 302.5 MOS/KG (273-304); Potassium 5.5 MMOL/L (3.5-5.1); Total Protein 5.9 G/DL (6.4-8.2)
[2021-02-07] MEDS: INSULIN REGULAR 100 UNIT/ML SUBCUT SCH ×4 (10:55→21:18)
[2021-02-07] MEDS: FUROSEMIDE 40 MG/4 ML VIAL IV SCH ×2 (10:56→16:00)
[2021-02-07] MEDS ORDERED: ALBUTEROL 2.5 MG/3 ML NEB RESP TX PRN (11:08)
[2021-02-07 12:12] LABS: Hematocrit 28.8 VOL% (35.7-47.0)
[2021-02-07] MEDS: ATORVASTATIN 80 MG TABLET PO SCH (21:18)
[2021-02-08] MEDS: PANTOPRAZOLE INJ 200 MG in SODIUM CHLORIDE 0.9% 250 ML IV SCH (04:30)
[2021-02-08 06:43] LABS: Basophils % 0.3 % (0.0-0.8); Eosinophils # 0.1 10*3/uL (0.0-0.87); Eosinophils % 1.4 % (0.00-10.9); Hematocrit 29.5 VOL% (35.7-47.0); Hemoglobin 8.8 GM/DL (12.0-16.0); Immature Granulocytes % 0.5 %; Immature Granulocytes Absolute 0.03 #; Lymphocytes # 0.6 10*3/uL (1.4-4.0); Mean Corpuscular HGB Conc 29.8 GM/DL (32-36); Mean Corpuscular Volume 90.8 FL (87-102); Mean Platelet Volume 11.9 FL (9.6-12.0); Monocytes % 11.5 % (1.7-12.7); Neutrophils % 76.3 % (38.7-73.9); Platelet Count 137 T/CUMM (130-400); Red Blood Count 3.25 MC/CUMM (3.8-5.5); Red Cell Distribution Width 15.9 % (9.3-17.3); White Blood Count 5.8 T/CUMM (4-12)
[2021-02-08 07:06] LABS: Calcium 7.9 MG/DL (8.5-10.1); Potassium 5.3 MMOL/L (3.5-5.1)
[2021-02-08 07:47] LABS: Hypochromasia 1+; Microcytosis Slight
[2021-02-08 07:48] LABS: Burr Cells Few; Platelet Estimate Adequate
[2021-02-08] MEDS: INSULIN REGULAR 100 UNIT/ML SUBCUT SCH ×4 (08:12→21:29)
[2021-02-08] MEDS: FUROSEMIDE 40 MG/4 ML VIAL IV SCH ×2 (08:45→16:48)
[2021-02-08] MEDS: ATORVASTATIN 80 MG TABLET PO SCH ×2 (19:47→21:30)
[2021-02-09 03:34] LABS: Bacteria,Urine Occasional /HPF (Few); Bilirubin,Urine Negative (Negative); Blood, Urine Small mg/dL (Negative); Glucose,Urine (UA) Negative (Negative); Hyaline Casts,Urine 4 /LPF (0-3); Ketones,Urine Negative (Negative); Mucus,Urine Occasional /LPF (Occasional); Nitrite,Urine Negative (Negative); Protein,Urine 100 MG/DL; RBC,Urine 3 /HPF (0-4); Squamous Epithelial Cell,Urine Occasional /HPF (0-10); Urine Appearance Slightly Hazy (Clear); Urine Color Yellow (Yellow); Urine Urobilinogen < 2.0 EU/DL (0.2-1.0)
[2021-02-09 04:59] LABS: ABG Base Excess -4.9 MMOL/L (-2.5-2.5); ABG HCO3 20.1 MMOL/L (20-26); ABG Oxygen Saturation 95.6 % (95-100); ABG PCO2 36.6 MM HG (35-48); ABG PH 7.357 (7.35-7.45); ABG TCO2 21.2 MMOL/L (23-27); Allen Test Positive; Pt O2 Delivery Device Room Air
[2021-02-09 05:06] LABS: Basophils % 0.4 % (0.0-0.8); Eosinophils # 0.1 10*3/uL (0.0-0.87); Eosinophils % 1.7 % (0.00-10.9); Hematocrit 26.8 VOL% (35.7-47.0); Hemoglobin 8.2 GM/DL (12.0-16.0); Immature Granulocytes % 0.4 %; Immature Granulocytes Absolute 0.02 #; Lymphocytes # 0.6 10*3/uL (1.4-4.0); Lymphocytes % 12.1 % (21.3-54.2); Mean Corpuscular HGB Conc 30.6 GM/DL (32-36); Mean Corpuscular Volume 87.9 FL (87-102); Mean Platelet Volume 12.2 FL (9.6-12.0); Monocytes % 10.9 % (1.7-12.7); Neutrophils % 74.5 % (38.7-73.9); Platelet Count 158 T/CUMM (130-400); Red Blood Count 3.05 MC/CUMM (3.8-5.5); Red Cell Distribution Width 16.1 % (9.3-17.3); White Blood Count 4.8 T/CUMM (4-12)
[2021-02-09] MEDS: PANTOPRAZOLE INJ 200 MG in SODIUM CHLORIDE 0.9% 250 ML IV SCH (05:30)
[2021-02-09 05:53] LABS: Calcium 8.1 MG/DL (8.5-10.1); Osmolality,Calculated 301.7 MOS/KG (273-304); Potassium 5.3 MMOL/L (3.5-5.1)
[2021-02-09] MEDS: INSULIN REGULAR 100 UNIT/ML SUBCUT SCH ×4 (07:51→20:42)
[2021-02-09] MEDS: FUROSEMIDE 40 MG/4 ML VIAL IV SCH ×2 (08:44→17:16)
[2021-02-09] MEDS: PANTOPRAZOLE 40 MG TABLET PO SCH (20:43)
[2021-02-09] MEDS: ATORVASTATIN 80 MG TABLET PO SCH (20:43)
[2021-02-10 07:41] LABS: Basophils % 0.3 % (0.0-0.8); Eosinophils # 0.1 10*3/uL (0.0-0.87); Eosinophils % 1.7 % (0.00-10.9); Hematocrit 27.1 VOL% (35.7-47.0); Hemoglobin 8.2 GM/DL (12.0-16.0); Immature Granulocytes % 0.3 %; Immature Granulocytes Absolute 0.02 #; Lymphocytes # 0.9 10*3/uL (1.4-4.0); Lymphocytes % 14.4 % (21.3-54.2); Mean Corpuscular HGB Conc 30.3 GM/DL (32-36); Mean Corpuscular Volume 88.3 FL (87-102); Mean Platelet Volume 12.1 FL (9.6-12.0); Monocytes % 11.2 % (1.7-12.7); Neutrophils % 72.1 % (38.7-73.9); Platelet Count 173 T/CUMM (130-400); Red Blood Count 3.07 MC/CUMM (3.8-5.5); Red Cell Distribution Width 16.5 % (9.3-17.3)
[2021-02-10 07:56] LABS: Calcium 8.2 MG/DL (8.5-10.1); Osmolality,Calculated 304.5 MOS/KG (273-304); Potassium 5.1 MMOL/L (3.5-5.1)
[2021-02-10] MEDS: FUROSEMIDE 40 MG/4 ML VIAL IV SCH ×2 (09:49→15:38)
[2021-02-10] MEDS: INSULIN REGULAR 100 UNIT/ML SUBCUT SCH ×4 (09:54→22:11)
[2021-02-10] MEDS ORDERED: SODIUM CHLORIDE 0.9% 1,000 ML IV SCH (10:00)
[2021-02-10] MEDS ORDERED: LIDOCAINE 2% 5 ML VIAL ONE (13:22)
[2021-02-10] MEDS ORDERED: propofoL 200 MG/20 ML VIAL IV ONE (13:22)
[2021-02-10] MEDS ORDERED: ETOMIDATE 20 MG/10 ML VIAL IV ONE (13:22)
[2021-02-10] MEDS: carvediloL 12.5 MG TABLET PO SCH ×2 (15:14→22:11)
[2021-02-10] MEDS: PANTOPRAZOLE 40 MG TABLET PO SCH ×2 (15:14→22:10)
[2021-02-10] MEDS ORDERED: traZODone 50 MG TABLET PO SCH (21:00)
[2021-02-10] MEDS: GABAPENTIN 300 MG CAPSULE PO SCH (22:10)
[2021-02-10] MEDS: ATORVASTATIN 80 MG TABLET PO SCH (22:10)
[2021-02-11 03:18] LABS: ABG Base Excess -4.9 MMOL/L (-2.5-2.5); ABG HCO3 20.3 MMOL/L (20-26); ABG Oxygen Saturation 94.7 % (95-100); ABG PCO2 40.1 MM HG (35-48); ABG PH 7.323 (7.35-7.45); ABG PO2 76.6 MM HG (80-95); ABG TCO2 19.5 MMOL/L (23-27)
[2021-02-11 04:09] LABS: Basophils % 0.4 % (0.0-0.8); Eosinophils % 0.8 % (0.00-10.9); Hematocrit 25.7 VOL% (35.7-47.0); Hemoglobin 7.8 GM/DL (12.0-16.0); Immature Granulocytes % 0.6 %; Immature Granulocytes Absolute 0.03 #; Lymphocytes # 0.5 10*3/uL (1.4-4.0); Lymphocytes % 9.9 % (21.3-54.2); Mean Corpuscular HGB Conc 30.4 GM/DL (32-36); Mean Corpuscular Volume 88.9 FL (87-102); Mean Platelet Volume 11.6 FL (9.6-12.0); Neutrophils % 79.3 % (38.7-73.9); Platelet Count 152 T/CUMM (130-400); Red Blood Count 2.89 MC/CUMM (3.8-5.5); Red Cell Distribution Width 16.7 % (9.3-17.3); White Blood Count 5.2 T/CUMM (4-12)
[2021-02-11 04:58] LABS: Total Protein 5.9 G/DL (6.4-8.2)
[2021-02-11 05:36] LABS: Calcium 8.4 MG/DL (8.5-10.1); Osmolality,Calculated 310.3 MOS/KG (273-304)
[2021-02-11 07:03] LABS: Immunoglobulin A (Chem) 336 MG/DL (70-400); Immunoglobulin G (Chem) 1310 MG/DL (700-1600); Immunoglobulin M (Chem) 133 MG/DL (40-230); Total Protein (Chem) 5.9 G/DL (6.4-8.3)
[2021-02-11 08:49] LABS: Albumin (SPE) 2.6 G/DL (3.2-5.3); Albumin (SPE) Rel % 44.7 %; Alpha 1 (SPE) 0.3 G/DL (0.1-0.4); Alpha 1 (SPE) Rel % 4.8 %; Alpha 2 (SPE) 0.7 G/DL (0.4-1.0); Alpha 2 (SPE) Rel % 12.3 %; Beta (SPE) 0.7 G/DL (0.5-1.1); Beta (SPE) Rel % 12.2 %; Gamma (SPE) 1.5 G/DL (0.7-1.7)
[2021-02-11] MEDS ORDERED: MONTELUKAST 10 MG TABLET PO SCH (09:00)
[2021-02-11] MEDS ORDERED: ESCITALOPRAM 10 MG TABLET PO SCH (09:00)
[2021-02-11] MEDS ORDERED: IRON (CARBONYL)/VIT C/B12/FA TABLET PO SCH (09:00)
[2021-02-11] MEDS: PANTOPRAZOLE 40 MG TABLET PO SCH (09:24)
[2021-02-11] MEDS: INSULIN REGULAR 100 UNIT/ML SUBCUT SCH ×2 (09:24→12:41)
[2021-02-11] MEDS: carvediloL 12.5 MG TABLET PO SCH (09:24)
[2021-02-11] MEDS: GABAPENTIN 300 MG CAPSULE PO SCH (09:24)
[2021-02-11] MEDS: FUROSEMIDE 40 MG/4 ML VIAL IV SCH (09:35)
[2021-02-11 09:51] LABS: Immuno Free Light Chain Lambda 11.62 MG/DL (0.57-2.63); Immuno Free Light Chain Ratio 1.78 MG/DL (0.26-1.65)
[2021-02-11 12:20] LABS: Random Urine Protein (Bench) 123 MG/DL (<11.9)
[2021-02-11 15:38] VITALS: BP 126/59
[2021-02-13 11:54] LABS: Albumin (UPER) Rel% 22.8 %; Alpha 1 (UPER) 2.5 MG/DL; Alpha 2 (UPER) 21.3 MG/DL; Alpha 2 (UPER) Rel % 17.3 %; Beta (UPER) 50.1 MG/DL; Beta (UPER) Rel % 40.7 %; Gamma (UPER) 21.2 MG/DL; Gamma (UPER) Rel % 17.2 %
== END 2021-02-11 16:17 | disposition home health service (06) | DRG 813 ==
LOC: EDUNIT# → N.ED 18:12 → N.EDINP 19:49 → SUATTDRO 19:49 → N.3E 20:17 → N.TELEN 21:12
PROVIDERS: ADMIT Internal Medicine; ATTEND Internal Medicine Geriatric Medicine

== ENCOUNTER 2021-02-13 16:04 | Inpatient (IN) ==
[2021-02-13] MEDS ORDERED: FUROSEMIDE 40 MG/4 ML VIAL IV STA (16:37)
[2021-02-13 16:46] LABS: Basophils % 0.2 % (0.0-0.8); Eosinophils % 0.2 % (0.00-10.9); Hematocrit 30.3 VOL% (35.7-47.0); Hemoglobin 9.5 GM/DL (12.0-16.0); Immature Granulocytes % 0.7 %; Immature Granulocytes Absolute 0.04 #; Lymphocytes # 0.6 10*3/uL (1.4-4.0); Lymphocytes % 10.3 % (21.3-54.2); Mean Corpuscular HGB Conc 31.4 GM/DL (32-36); Mean Corpuscular Volume 85.8 FL (87-102); Mean Platelet Volume 12.2 FL (9.6-12.0); Monocytes % 8.4 % (1.7-12.7); Neutrophils % 80.2 % (38.7-73.9); Platelet Count 132 T/CUMM (130-400); Red Blood Count 3.53 MC/CUMM (3.8-5.5); Red Cell Distribution Width 17.1 % (9.3-17.3); White Blood Count 5.8 T/CUMM (4-12)
[2021-02-13 17:18] LABS: Albumin 1.9 G/DL (3.4-5.0); Bilirubin,Total 1.7 MG/DL (0.2-1.0); Calcium 8.3 MG/DL (8.5-10.1); Osmolality,Calculated 309.4 MOS/KG (273-304); Potassium 5.3 MMOL/L (3.5-5.1); Total Protein 6.2 G/DL (6.4-8.2)
[2021-02-13] MEDS ORDERED: NICOTINE 21 MG/24 HR PATCH TRANSDERM PRN (18:01)
[2021-02-13] MEDS ORDERED: ONDANSETRON 4 MG/2 ML VIAL IV PRN (18:01)
[2021-02-13] MEDS ORDERED: DEXTROSE 50% 25 GM/50 ML VIAL IV PRN ×2 (18:01)
[2021-02-13] MEDS ORDERED: guaiFENesin/DM ER 600-30 MG TABLET PO PRN (18:01)
[2021-02-13] MEDS ORDERED: diphenhydrAMINE CAP 25 MG CAPSULE PO PRN (18:01)
[2021-02-13] MEDS ORDERED: BISACODYL 5 MG TABLET PO PRN (18:01)
[2021-02-13] MEDS ORDERED: GLUCAGON 1 MG VIAL IM PRN ×2 (18:01)
[2021-02-13] MEDS ORDERED: DOCUSATE SODIUM 100 MG CAPSULE PO PRN (18:01)
[2021-02-13] MEDS ORDERED: ACETAMINOPHEN 325 MG TABLET PO PRN (18:01)
[2021-02-13] MEDS ORDERED: hydrALAZINE 20 MG/1 ML VIAL IV PRN (18:01)
[2021-02-13] MEDS ORDERED: ZALEPLON 5 MG CAPSULE PO PRN (18:01)
[2021-02-13] MEDS ORDERED: ENOXAPARIN 100 MG/ML SYRINGE SUBCUT STA (18:03)
[2021-02-13 18:25] LABS: Bilirubin,Urine Negative (Negative); Blood, Urine Moderate mg/dL (Negative); Glucose,Urine (UA) Negative (Negative); Ketones,Urine Negative (Negative); Nitrite,Urine Negative (Negative); Protein,Urine 100 MG/DL; RBC,Urine 28 /HPF (0-4); Urine Appearance CLOUDY (Clear); Urine Color Yellow (Yellow); Urine Specific Gravity 1.012 (1.001-1.035); Urine Urobilinogen < 2.0 EU/DL (0.2-1.0)
[2021-02-13] MEDS: ALBUTEROL/IPRATROPIUM 3 ML NEB RESP TX SCH (19:28)
[2021-02-13] MEDS: INSULIN LISPRO 100 UNIT/ML SUBCUT SCH (20:34)
[2021-02-13] MEDS: cefTRIAXone 1,000 MG in SODIUM CHLORIDE 0.9% 100 ML IV SCH (22:16)
[2021-02-14] MEDS: ALBUTEROL/IPRATROPIUM 3 ML NEB RESP TX SCH ×4 (01:12→19:24)
[2021-02-14 06:16] LABS: Basophils % 0.4 % (0.0-0.8); Eosinophils # 0.1 10*3/uL (0.0-0.87); Eosinophils % 1.1 % (0.00-10.9); Hematocrit 23.3 VOL% (35.7-47.0); Immature Granulocytes % 0.6 %; Immature Granulocytes Absolute 0.03 #; Lymphocytes # 0.7 10*3/uL (1.4-4.0); Lymphocytes % 13.7 % (21.3-54.2); Mean Corpuscular HGB Conc 31.3 GM/DL (32-36); Mean Platelet Volume 11.8 FL (9.6-12.0); Monocytes % 9.5 % (1.7-12.7); Neutrophils % 74.7 % (38.7-73.9); Platelet Count 155 T/CUMM (130-400); Red Cell Distribution Width 16.9 % (9.3-17.3); White Blood Count 5.4 T/CUMM (4-12)
[2021-02-14 06:20] LABS: Hemoglobin 7.3 GM/DL (12.0-16.0); Red Blood Count 2.71 MC/CUMM (3.8-5.5)
[2021-02-14 06:36] LABS: Albumin 1.8 G/DL (3.4-5.0); Bilirubin,Total 0.9 MG/DL (0.2-1.0); Calcium 8.3 MG/DL (8.5-10.1); Osmolality,Calculated 312.3 MOS/KG (273-304); Potassium 4.6 MMOL/L (3.5-5.1); Thyroid Stimulating Hormone 1.32 uIU/ml (0.358-3.74); Total Protein 5.8 G/DL (6.4-8.2)
[2021-02-14] MEDS: INSULIN LISPRO 100 UNIT/ML SUBCUT SCH ×4 (07:49→21:46)
[2021-02-14] MEDS: PANTOPRAZOLE 40 MG TABLET PO SCH (09:25)
[2021-02-14] MEDS: cefTRIAXone 1,000 MG in SODIUM CHLORIDE 0.9% 100 ML IV SCH (21:46)
[2021-02-15] MEDS: ALBUTEROL/IPRATROPIUM 3 ML NEB RESP TX SCH ×4 (00:38→19:40)
[2021-02-15] MEDS: INSULIN LISPRO 100 UNIT/ML SUBCUT SCH ×4 (07:42→21:23)
[2021-02-15] MEDS: PANTOPRAZOLE 40 MG TABLET PO SCH (08:21)
[2021-02-15 08:48] LABS: Basophils % 0.2 % (0.0-0.8); Eosinophils # 0.1 10*3/uL (0.0-0.87); Eosinophils % 1.7 % (0.00-10.9); Hematocrit 23.5 VOL% (35.7-47.0); Hemoglobin 7.2 GM/DL (12.0-16.0); Immature Granulocytes % 0.6 %; Immature Granulocytes Absolute 0.03 #; Lymphocytes # 0.6 10*3/uL (1.4-4.0); Lymphocytes % 11.5 % (21.3-54.2); Mean Corpuscular HGB Conc 30.6 GM/DL (32-36); Mean Platelet Volume 11.2 FL (9.6-12.0); Monocytes % 9.2 % (1.7-12.7); Neutrophils % 76.8 % (38.7-73.9); Platelet Count 161 T/CUMM (130-400); Red Cell Distribution Width 16.9 % (9.3-17.3); White Blood Count 5.2 T/CUMM (4-12)
[2021-02-15 09:13] LABS: Calcium 8.2 MG/DL (8.5-10.1); Osmolality,Calculated 311.4 MOS/KG (273-304); Potassium 4.6 MMOL/L (3.5-5.1)
[2021-02-15] MEDS: cefTRIAXone 1,000 MG in SODIUM CHLORIDE 0.9% 100 ML IV SCH (21:23)
[2021-02-16] MEDS: ALBUTEROL/IPRATROPIUM 3 ML NEB RESP TX SCH ×4 (01:35→19:07)
[2021-02-16 05:24] LABS: Basophils % 0.3 % (0.0-0.8); Eosinophils # 0.1 10*3/uL (0.0-0.87); Eosinophils % 1.7 % (0.00-10.9); Hematocrit 22.8 VOL% (35.7-47.0); Immature Granulocytes % 0.5 %; Immature Granulocytes Absolute 0.03 #; Lymphocytes # 0.7 10*3/uL (1.4-4.0); Lymphocytes % 11.3 % (21.3-54.2); Mean Corpuscular HGB Conc 30.7 GM/DL (32-36); Mean Corpuscular Volume 87.4 FL (87-102); Monocytes % 9.9 % (1.7-12.7); Neutrophils % 76.3 % (38.7-73.9); Platelet Count 147 T/CUMM (130-400); Red Blood Count 2.61 MC/CUMM (3.8-5.5); Red Cell Distribution Width 17.2 % (9.3-17.3); White Blood Count 5.9 T/CUMM (4-12)
[2021-02-16 05:38] LABS: Calcium 7.9 MG/DL (8.5-10.1); Osmolality,Calculated 311.3 MOS/KG (273-304); Potassium 4.7 MMOL/L (3.5-5.1)
[2021-02-16] MEDS: INSULIN LISPRO 100 UNIT/ML SUBCUT SCH ×4 (08:01→20:58)
[2021-02-16] MEDS: PANTOPRAZOLE 40 MG TABLET PO SCH (08:19)
[2021-02-16] MEDS: metOLazone 5 MG TABLET PO SCH (10:28)
[2021-02-16] MEDS: FUROSEMIDE 100 MG/10 ML VIAL IV SCH ×3 (10:36→20:58)
[2021-02-16 17:35] LABS: Creatinine Clearance Urine 1.72 ML/MIN (70-115)
[2021-02-16] MEDS: cefTRIAXone 1,000 MG in SODIUM CHLORIDE 0.9% 100 ML IV SCH (20:58)
[2021-02-17] MEDS: ALBUTEROL/IPRATROPIUM 3 ML NEB RESP TX SCH ×4 (01:28→19:04)
[2021-02-17 05:47] LABS: Calcium 7.8 MG/DL (8.5-10.1); Osmolality,Calculated 311.4 MOS/KG (273-304); Potassium 4.5 MMOL/L (3.5-5.1)
[2021-02-17] MEDS: INSULIN LISPRO 100 UNIT/ML SUBCUT SCH ×4 (07:38→21:20)
[2021-02-17] MEDS: PANTOPRAZOLE 40 MG TABLET PO SCH (09:26)
[2021-02-17] MEDS: metOLazone 5 MG TABLET PO SCH (09:27)
[2021-02-17] MEDS: FUROSEMIDE 100 MG/10 ML VIAL IV SCH ×3 (09:40→21:28)
[2021-02-17] MEDS: cefTRIAXone 1,000 MG in SODIUM CHLORIDE 0.9% 100 ML IV SCH (21:28)
[2021-02-18] MEDS: ALBUTEROL/IPRATROPIUM 3 ML NEB RESP TX SCH ×4 (01:01→19:36)
[2021-02-18 06:08] LABS: Basophils % 0.5 % (0.0-0.8); Eosinophils # 0.1 10*3/uL (0.0-0.87); Eosinophils % 1.6 % (0.00-10.9); Hematocrit 23.1 VOL% (35.7-47.0); Hemoglobin 7.1 GM/DL (12.0-16.0); Immature Granulocytes % 0.5 %; Immature Granulocytes Absolute 0.03 #; Lymphocytes # 0.7 10*3/uL (1.4-4.0); Lymphocytes % 11.3 % (21.3-54.2); Mean Corpuscular HGB Conc 30.7 GM/DL (32-36); Mean Corpuscular Volume 87.8 FL (87-102); Mean Platelet Volume 11.4 FL (9.6-12.0); Monocytes % 8.4 % (1.7-12.7); Neutrophils % 77.7 % (38.7-73.9); Platelet Count 162 T/CUMM (130-400); Red Blood Count 2.63 MC/CUMM (3.8-5.5); Red Cell Distribution Width 17.1 % (9.3-17.3); White Blood Count 5.7 T/CUMM (4-12)
[2021-02-18 06:35] LABS: Osmolality,Calculated 312.3 MOS/KG (273-304); Potassium 4.5 MMOL/L (3.5-5.1)
[2021-02-18] MEDS: INSULIN LISPRO 100 UNIT/ML SUBCUT SCH ×4 (08:04→20:51)
[2021-02-18] MEDS: PANTOPRAZOLE 40 MG TABLET PO SCH (08:07)
[2021-02-18] MEDS: metOLazone 5 MG TABLET PO SCH (08:07)
[2021-02-18] MEDS: FUROSEMIDE 100 MG/10 ML VIAL IV SCH ×3 (13:37→20:55)
[2021-02-18] MEDS: cefTRIAXone 1,000 MG in SODIUM CHLORIDE 0.9% 100 ML IV SCH (20:55)
[2021-02-19] MEDS: ALBUTEROL/IPRATROPIUM 3 ML NEB RESP TX SCH ×3 (00:18→12:40)
[2021-02-19 06:41] LABS: Basophils % 0.4 % (0.0-0.8); Eosinophils # 0.1 10*3/uL (0.0-0.87); Eosinophils % 1.6 % (0.00-10.9); Hematocrit 23.6 VOL% (35.7-47.0); Hemoglobin 7.3 GM/DL (12.0-16.0); Immature Granulocytes % 0.5 %; Immature Granulocytes Absolute 0.03 #; Lymphocytes # 0.7 10*3/uL (1.4-4.0); Lymphocytes % 12.4 % (21.3-54.2); Mean Corpuscular HGB Conc 30.9 GM/DL (32-36); Mean Corpuscular Volume 87.4 FL (87-102); Mean Platelet Volume 10.6 FL (9.6-12.0); Monocytes % 9.5 % (1.7-12.7); Neutrophils % 75.6 % (38.7-73.9); Platelet Count 182 T/CUMM (130-400); Red Cell Distribution Width 17.2 % (9.3-17.3); White Blood Count 5.7 T/CUMM (4-12)
[2021-02-19 07:01] LABS: Calcium 8.1 MG/DL (8.5-10.1); Osmolality,Calculated 312.4 MOS/KG (273-304); Potassium 4.3 MMOL/L (3.5-5.1)
[2021-02-19] MEDS: INSULIN LISPRO 100 UNIT/ML SUBCUT SCH ×3 (08:06→15:31)
[2021-02-19] MEDS: PANTOPRAZOLE 40 MG TABLET PO SCH (08:36)
[2021-02-19] MEDS: metOLazone 5 MG TABLET PO SCH (08:36)
[2021-02-19] MEDS: FUROSEMIDE 100 MG/10 ML VIAL IV SCH ×2 (08:36→14:37)
[2021-02-19 16:02] VITALS: BP 129/53
== END 2021-02-19 17:32 | disposition home or self-care (01) | DRG 291 ==
LOC: EDUNIT# → EDBD → N.ED 16:04 → N.EDINP 16:04 → N.TELEN 19:40 → SUATTDRO 02-16 14:52
PROVIDERS: ADMIT Internal Medicine Geriatric Medicine; ATTEND Internal Medicine

== ENCOUNTER 2021-03-10 15:20 | Inpatient (IN) ==
[2021-03-10 16:25] LABS: Eosinophils # 0.1 10*3/uL (0.0-0.87); Eosinophils % 2.5 % (0.00-10.9); Hematocrit 21.7 VOL% (35.7-47.0); Hemoglobin 6.7 GM/DL (12.0-16.0); Immature Granulocytes % 0.5 %; Immature Granulocytes Absolute 0.02 #; Lymphocytes # 0.7 10*3/uL (1.4-4.0); Lymphocytes % 16.8 % (21.3-54.2); Mean Corpuscular HGB Conc 30.9 GM/DL (32-36); Mean Corpuscular Volume 83.8 FL (87-102); Mean Platelet Volume 11.6 FL (9.6-12.0); Monocytes % 7.5 % (1.7-12.7); Neutrophils % 71.7 % (38.7-73.9); Platelet Count 288 T/CUMM (130-400); Red Blood Count 2.59 MC/CUMM (3.8-5.5)
[2021-03-10 16:36] LABS: Albumin 2.2 G/DL (3.4-5.0); Bilirubin,Total 0.5 MG/DL (0.2-1.0); Calcium 7.9 MG/DL (8.5-10.1); Potassium 3.4 MMOL/L (3.5-5.1); Total Protein 7.3 G/DL (6.4-8.2)
[2021-03-10 17:15] LABS: Bilirubin,Urine Negative (Negative); Blood, Urine Small mg/dL (Negative); Glucose,Urine (UA) Negative (Negative); Ketones,Urine Negative (Negative); Nitrite,Urine Negative (Negative); Protein,Urine 30 MG/DL; Squamous Epithelial Cell,Urine Occasional /HPF (0-10); Urine Appearance CLOUDY (Clear); Urine Color Yellow (Yellow); Urine Specific Gravity 1.009 (1.001-1.035); Urine Urobilinogen < 2.0 EU/DL (0.2-1.0)
[2021-03-10] MEDS ORDERED: ZALEPLON 5 MG CAPSULE PO PRN (18:32)
[2021-03-10] MEDS ORDERED: GLUCAGON 1 MG VIAL IM PRN (18:32)
[2021-03-10] MEDS ORDERED: DEXTROSE 50% 25 GM/50 ML VIAL IV PRN (18:32)
[2021-03-10] MEDS ORDERED: SODIUM CHLORIDE 0.9% 1,000 ML IV PRN (18:50)
[2021-03-10] MEDS ORDERED: ALBUTEROL 2.5 MG/3 ML NEB RESP TX PRN (19:18)
[2021-03-10 19:39] LABS: Folate 11.48 NG/ML (5.38-24.0); Vitamin B12 1417 PG/ML (211-911)
[2021-03-10] MEDS: HEPARIN 5,000 UNIT/1 ML VIAL SUBCUT SCH (20:00)
[2021-03-10] MEDS: LACTULOSE 20 GM/30 ML UDCUP PO SCH ×2 (20:00→23:57)
[2021-03-10 20:22] LABS: Basophils % 0.8 % (0.0-0.8); Eosinophils # 0.1 10*3/uL (0.0-0.87); Eosinophils % 1.6 % (0.00-10.9); Hematocrit 25.1 VOL% (35.7-47.0); Hemoglobin 7.8 GM/DL (12.0-16.0); Immature Granulocytes % 0.5 %; Immature Granulocytes Absolute 0.02 #; Lymphocytes # 0.7 10*3/uL (1.4-4.0); Lymphocytes % 18.7 % (21.3-54.2); Mean Corpuscular HGB Conc 31.1 GM/DL (32-36); Mean Corpuscular Volume 83.1 FL (87-102); Mean Platelet Volume 11.5 FL (9.6-12.0); Monocytes % 7.3 % (1.7-12.7); Neutrophils % 71.1 % (38.7-73.9); Platelet Count 256 T/CUMM (130-400); Red Blood Count 3.02 MC/CUMM (3.8-5.5); Red Cell Distribution Width 17.2 % (9.3-17.3); White Blood Count 3.7 T/CUMM (4-12)
[2021-03-10 21:33] LABS: Sedimentation Rate-Westergren 122 MM/HR (0-30)
[2021-03-10] MEDS: ATORVASTATIN 80 MG TABLET PO SCH (23:56)
[2021-03-10] MEDS: traZODone 50 MG TABLET PO SCH (23:57)
[2021-03-11] MEDS: LACTULOSE 20 GM/30 ML UDCUP PO SCH ×5 (03:54→22:07)
[2021-03-11 07:06] LABS: Basophils % 0.7 % (0.0-0.8); Eosinophils % 0.7 % (0.00-10.9); Hematocrit 23.2 VOL% (35.7-47.0); Hemoglobin 7.5 GM/DL (12.0-16.0); Immature Granulocytes % 0.4 %; Immature Granulocytes Absolute 0.01 #; Lymphocytes # 0.5 10*3/uL (1.4-4.0); Lymphocytes % 18.4 % (21.3-54.2); Mean Corpuscular HGB Conc 32.3 GM/DL (32-36); Mean Corpuscular Volume 81.4 FL (87-102); Mean Platelet Volume 10.7 FL (9.6-12.0); Monocytes % 7.6 % (1.7-12.7); Neutrophils % 72.2 % (38.7-73.9); Platelet Count 242 T/CUMM (130-400); Red Blood Count 2.85 MC/CUMM (3.8-5.5); Red Cell Distribution Width 16.8 % (9.3-17.3); White Blood Count 2.8 T/CUMM (4-12)
[2021-03-11] MEDS: HEPARIN 5,000 UNIT/1 ML VIAL SUBCUT SCH ×2 (07:10→22:11)
[2021-03-11 07:45] LABS: Calcium 7.7 MG/DL (8.5-10.1); Osmolality,Calculated 314.5 MOS/KG (273-304); Potassium 3.5 MMOL/L (3.5-5.1)
[2021-03-11] MEDS ORDERED: PANTOPRAZOLE 40 MG VIAL IV SCH (09:00)
[2021-03-11] MEDS: MONTELUKAST 10 MG TABLET PO SCH (09:29)
[2021-03-11] MEDS: SPIRONOLACTONE 50 MG TABLET PO SCH (09:29)
[2021-03-11] MEDS: IRON (CARBONYL)/VIT C/B12/FA TABLET PO SCH (09:29)
[2021-03-11] MEDS: FUROSEMIDE 40 MG/4 ML VIAL IV SCH (09:30)
[2021-03-11] MEDS: cefTRIAXone 1,000 MG in SODIUM CHLORIDE 0.9% 100 ML IV SCH (09:35)
[2021-03-11] MEDS ORDERED: FUROSEMIDE 40 MG/4 ML VIAL IV ONE (13:51)
[2021-03-11] MEDS: traZODone 50 MG TABLET PO SCH (22:10)
[2021-03-11] MEDS: ATORVASTATIN 80 MG TABLET PO SCH (22:11)
[2021-03-12] MEDS: LACTULOSE 20 GM/30 ML UDCUP PO SCH ×6 (04:42→19:55)
[2021-03-12 05:04] LABS: Basophils % 0.7 % (0.0-0.8); Eosinophils % 0.4 % (0.00-10.9); Hematocrit 27.3 VOL% (35.7-47.0); Hemoglobin 8.6 GM/DL (12.0-16.0); Immature Granulocytes % 0.7 %; Immature Granulocytes Absolute 0.03 #; Lymphocytes # 0.8 10*3/uL (1.4-4.0); Lymphocytes % 16.8 % (21.3-54.2); Mean Corpuscular HGB Conc 31.5 GM/DL (32-36); Mean Corpuscular Volume 83.5 FL (87-102); Monocytes % 10.2 % (1.7-12.7); Neutrophils % 71.2 % (38.7-73.9); Platelet Count 268 T/CUMM (130-400); Red Blood Count 3.27 MC/CUMM (3.8-5.5); Red Cell Distribution Width 17.1 % (9.3-17.3); White Blood Count 4.5 T/CUMM (4-12)
[2021-03-12 05:21] LABS: Calcium 7.9 MG/DL (8.5-10.1); Osmolality,Calculated 309.7 MOS/KG (273-304); Potassium 3.4 MMOL/L (3.5-5.1)
[2021-03-12 05:55] LABS: Calcium 7.4 MG/DL (8.5-10.1); Osmolality,Calculated 316.4 MOS/KG (273-304); Potassium 3.6 MMOL/L (3.5-5.1)
[2021-03-12] MEDS: PANTOPRAZOLE 40 MG TABLET PO SCH (06:21)
[2021-03-12] MEDS: HEPARIN 5,000 UNIT/1 ML VIAL SUBCUT SCH ×2 (08:44→20:48)
[2021-03-12] MEDS: FUROSEMIDE 40 MG/4 ML VIAL IV SCH (08:47)
[2021-03-12] MEDS: cefTRIAXone 1,000 MG in SODIUM CHLORIDE 0.9% 100 ML IV SCH (08:49)
[2021-03-12] MEDS: MONTELUKAST 10 MG TABLET PO SCH (08:54)
[2021-03-12] MEDS: IRON (CARBONYL)/VIT C/B12/FA TABLET PO SCH (08:54)
[2021-03-12] MEDS: SPIRONOLACTONE 50 MG TABLET PO SCH (08:54)
[2021-03-12 09:32] LABS: Hemoglobin A1 (Alkaline) 96.9 % (96.5-98.5); Hemoglobin A2 (Alkaline) 3.1 % (1.5-3.5)
[2021-03-12] MEDS: CEFEPIME 1,000 MG in SODIUM CHLORIDE 0.9% 100 ML IV SCH (11:00)
[2021-03-12] MEDS: METOCLOPRAMIDE 10 MG/10 ML UDCUP PO SCH (16:22)
[2021-03-12] MEDS: traZODone 50 MG TABLET PO SCH (20:45)
[2021-03-12] MEDS: ATORVASTATIN 80 MG TABLET PO SCH (20:46)
[2021-03-13] MEDS: LACTULOSE 20 GM/30 ML UDCUP PO SCH ×7 (00:34→22:30)
[2021-03-13 05:20] LABS: Basophils % 0.7 % (0.0-0.8); Eosinophils # 0.1 10*3/uL (0.0-0.87); Eosinophils % 2.1 % (0.00-10.9); Immature Granulocytes % 0.7 %; Immature Granulocytes Absolute 0.03 #; Lymphocytes # 0.9 10*3/uL (1.4-4.0); Lymphocytes % 19.9 % (21.3-54.2); Mean Corpuscular HGB Conc 32.1 GM/DL (32-36); Mean Corpuscular Volume 82.6 FL (87-102); Monocytes % 12.7 % (1.7-12.7); Neutrophils % 63.9 % (38.7-73.9); Platelet Count 234 T/CUMM (130-400); Red Blood Count 3.39 MC/CUMM (3.8-5.5); White Blood Count 4.3 T/CUMM (4-12)
[2021-03-13 05:52] LABS: Calcium 7.6 MG/DL (8.5-10.1); Osmolality,Calculated 315.4 MOS/KG (273-304); Potassium 3.3 MMOL/L (3.5-5.1)
[2021-03-13] MEDS: PANTOPRAZOLE 40 MG TABLET PO SCH (05:56)
[2021-03-13] MEDS: HEPARIN 5,000 UNIT/1 ML VIAL SUBCUT SCH ×2 (06:00→18:19)
[2021-03-13] MEDS: FUROSEMIDE 40 MG/4 ML VIAL IV SCH (09:04)
[2021-03-13] MEDS: CEFEPIME 1,000 MG in SODIUM CHLORIDE 0.9% 100 ML IV SCH (09:06)
[2021-03-13] MEDS: METOCLOPRAMIDE 10 MG/10 ML UDCUP PO SCH ×3 (09:09→16:27)
[2021-03-13] MEDS: SPIRONOLACTONE 50 MG TABLET PO SCH (09:10)
[2021-03-13] MEDS: IRON (CARBONYL)/VIT C/B12/FA TABLET PO SCH (09:10)
[2021-03-13] MEDS: MONTELUKAST 10 MG TABLET PO SCH (09:10)
[2021-03-13] MEDS: ATORVASTATIN 80 MG TABLET PO SCH (20:35)
[2021-03-13] MEDS: traZODone 50 MG TABLET PO SCH (20:35)
[2021-03-14] MEDS: LACTULOSE 20 GM/30 ML UDCUP PO SCH ×6 (03:21→21:59)
[2021-03-14 05:38] LABS: Basophils # 0.1 10*3/uL (0.0-0.2); Basophils % 1.1 % (0.0-0.8); Eosinophils # 0.1 10*3/uL (0.0-0.87); Eosinophils % 3.2 % (0.00-10.9); Hematocrit 28.2 VOL% (35.7-47.0); Hemoglobin 8.7 GM/DL (12.0-16.0); Immature Granulocytes % 0.7 %; Immature Granulocytes Absolute 0.03 #; Lymphocytes # 1.1 10*3/uL (1.4-4.0); Mean Corpuscular HGB Conc 30.9 GM/DL (32-36); Mean Corpuscular Volume 83.7 FL (87-102); Mean Platelet Volume 11.5 FL (9.6-12.0); Monocytes % 10.9 % (1.7-12.7); Neutrophils % 60.1 % (38.7-73.9); Platelet Count 224 T/CUMM (130-400); Red Blood Count 3.37 MC/CUMM (3.8-5.5); White Blood Count 4.4 T/CUMM (4-12)
[2021-03-14 06:10] LABS: Osmolality,Calculated 315.4 MOS/KG (273-304); Potassium 3.1 MMOL/L (3.5-5.1)
[2021-03-14] MEDS: PANTOPRAZOLE 40 MG TABLET PO SCH (06:21)
[2021-03-14] MEDS: HEPARIN 5,000 UNIT/1 ML VIAL SUBCUT SCH ×2 (06:24→18:36)
[2021-03-14] MEDS: METOCLOPRAMIDE 10 MG/10 ML UDCUP PO SCH ×3 (07:58→17:01)
[2021-03-14] MEDS: SPIRONOLACTONE 50 MG TABLET PO SCH (08:55)
[2021-03-14] MEDS: FUROSEMIDE 40 MG/4 ML VIAL IV SCH (08:55)
[2021-03-14] MEDS: CEFEPIME 1,000 MG in SODIUM CHLORIDE 0.9% 100 ML IV SCH (09:35)
[2021-03-14] MEDS: MONTELUKAST 10 MG TABLET PO SCH (09:40)
[2021-03-14] MEDS: IRON (CARBONYL)/VIT C/B12/FA TABLET PO SCH (09:40)
[2021-03-14] MEDS: POTASSIUM CHLORIDE 20 MEQ/15 ML UDCUP PO SCH ×2 (12:29→21:59)
[2021-03-14] MEDS ORDERED: ASPIRIN 300 MG SUPP RECTAL ONE (14:03)
[2021-03-14 14:19] LABS: Basophils % 0.6 % (0.0-0.8); Eosinophils # 0.1 10*3/uL (0.0-0.87); Eosinophils % 1.7 % (0.00-10.9); Hematocrit 28.2 VOL% (35.7-47.0); Hemoglobin 8.8 GM/DL (12.0-16.0); Immature Granulocytes % 0.4 %; Immature Granulocytes Absolute 0.02 #; Lymphocytes # 0.9 10*3/uL (1.4-4.0); Lymphocytes % 18.5 % (21.3-54.2); Mean Corpuscular HGB Conc 31.2 GM/DL (32-36); Mean Corpuscular Volume 83.9 FL (87-102); Mean Platelet Volume 11.4 FL (9.6-12.0); Monocytes % 11.8 % (1.7-12.7); Platelet Count 225 T/CUMM (130-400); Red Blood Count 3.36 MC/CUMM (3.8-5.5); White Blood Count 4.7 T/CUMM (4-12)
[2021-03-14 14:30] LABS: INR 1.2; PT Patient Result 12.9 SECS (10.5-12.0); Partial Thromboplastin Time 34.3 SECS (23.9-33.8)
[2021-03-14 14:40] LABS: Albumin 1.9 G/DL (3.4-5.0); Bilirubin,Total 0.4 MG/DL (0.2-1.0); Osmolality,Calculated 314.5 MOS/KG (273-304); Potassium 3.7 MMOL/L (3.5-5.1); Total Protein 6.8 G/DL (6.4-8.2)
[2021-03-14] MEDS: SODIUM CHLORIDE 0.9% 1,000 ML IV SCH (15:31)
[2021-03-14] MEDS: DEXT 5% NACL 0.45% KCL 20 MEQ 20 MEQ/1,000 ML BAG IV SCH (16:17)
[2021-03-14 17:32] LABS: Bilirubin,Urine Negative (Negative); Blood, Urine Negative (Negative); Glucose,Urine (UA) Negative (Negative); Ketones,Urine Negative (Negative); Nitrite,Urine Negative (Negative); Protein,Urine 30 MG/DL; RBC,Urine 2 /HPF (0-4); Urine Appearance CLEAR (Clear); Urine Color Yellow (Yellow); Urine Specific Gravity 1.009 (1.001-1.035); Urine Urobilinogen < 2.0 EU/DL (0.2-1.0)
[2021-03-14] MEDS: ATORVASTATIN 80 MG TABLET PO SCH (21:59)
[2021-03-14] MEDS: traZODone 50 MG TABLET PO SCH (21:59)
[2021-03-15] MEDS: LACTULOSE 20 GM/30 ML UDCUP PO SCH ×6 (03:19→23:41)
[2021-03-15 06:24] LABS: Risk Ratio 2.6; VLDL Cholesterol 20.6 MG/DL
[2021-03-15] MEDS: PANTOPRAZOLE 40 MG TABLET PO SCH (06:32)
[2021-03-15] MEDS: HEPARIN 5,000 UNIT/1 ML VIAL SUBCUT SCH ×2 (06:36→20:04)
[2021-03-15] MEDS ORDERED: ASPIRIN 300 MG SUPP RECTAL SCH (09:00)
[2021-03-15] MEDS: CEFEPIME 1,000 MG in SODIUM CHLORIDE 0.9% 100 ML IV SCH (09:17)
[2021-03-15] MEDS: METOCLOPRAMIDE 10 MG/10 ML UDCUP PO SCH ×3 (09:17→17:46)
[2021-03-15] MEDS: IRON (CARBONYL)/VIT C/B12/FA TABLET PO SCH (09:18)
[2021-03-15] MEDS: FUROSEMIDE 40 MG/4 ML VIAL IV SCH (09:18)
[2021-03-15] MEDS: SPIRONOLACTONE 50 MG TABLET PO SCH (09:18)
[2021-03-15] MEDS: POTASSIUM CHLORIDE 20 MEQ/15 ML UDCUP PO SCH (09:18)
[2021-03-15] MEDS: MONTELUKAST 10 MG TABLET PO SCH (09:18)
[2021-03-15] MEDS: DEXT 5% NACL 0.45% KCL 20 MEQ 20 MEQ/1,000 ML BAG IV SCH (15:22)
[2021-03-15] MEDS: ONDANSETRON 4 MG/2 ML VIAL IV PRN (15:23)
[2021-03-15] MEDS: SODIUM CHLORIDE 0.9% 1,000 ML IV SCH (16:29)
[2021-03-15] MEDS: traZODone 50 MG TABLET PO SCH (20:48)
[2021-03-15] MEDS: ATORVASTATIN 80 MG TABLET PO SCH (20:48)
[2021-03-16 06:03] LABS: Basophils % 1.1 % (0.0-0.8); Eosinophils # 0.1 10*3/uL (0.0-0.87); Eosinophils % 2.4 % (0.00-10.9); Hematocrit 31.5 VOL% (35.7-47.0); Hemoglobin 9.5 GM/DL (12.0-16.0); Immature Granulocytes % 0.8 %; Immature Granulocytes Absolute 0.03 #; Lymphocytes # 0.8 10*3/uL (1.4-4.0); Lymphocytes % 21.2 % (21.3-54.2); Mean Corpuscular HGB Conc 30.2 GM/DL (32-36); Mean Corpuscular Volume 87.3 FL (87-102); Mean Platelet Volume 12.4 FL (9.6-12.0); Monocytes % 12.2 % (1.7-12.7); Neutrophils % 62.3 % (38.7-73.9); Platelet Count 195 T/CUMM (130-400); Red Blood Count 3.61 MC/CUMM (3.8-5.5); Red Cell Distribution Width 17.3 % (9.3-17.3); White Blood Count 3.7 T/CUMM (4-12)
[2021-03-16] MEDS: LACTULOSE 20 GM/30 ML UDCUP PO SCH ×5 (06:09→19:49)
[2021-03-16] MEDS: PANTOPRAZOLE 40 MG TABLET PO SCH (06:12)
[2021-03-16 06:19] LABS: Calcium 7.9 MG/DL (8.5-10.1); Osmolality,Calculated 316.4 MOS/KG (273-304)
[2021-03-16] MEDS: ONDANSETRON 4 MG/2 ML VIAL IV PRN ×2 (08:48→15:43)
[2021-03-16] MEDS: FUROSEMIDE 40 MG/4 ML VIAL IV SCH (08:50)
[2021-03-16] MEDS: HEPARIN 5,000 UNIT/1 ML VIAL SUBCUT SCH ×2 (09:10→19:49)
[2021-03-16] MEDS: SPIRONOLACTONE 50 MG TABLET PO SCH (09:11)
[2021-03-16] MEDS: ASPIRIN EC 325 MG TABLET PO SCH (09:11)
[2021-03-16] MEDS: METOCLOPRAMIDE 10 MG/10 ML UDCUP PO SCH ×3 (09:11→16:49)
[2021-03-16] MEDS: IRON (CARBONYL)/VIT C/B12/FA TABLET PO SCH (09:11)
[2021-03-16] MEDS: MONTELUKAST 10 MG TABLET PO SCH (09:12)
[2021-03-16] MEDS: CEFEPIME 1,000 MG in SODIUM CHLORIDE 0.9% 100 ML IV SCH (11:37)
[2021-03-16] MEDS: SODIUM CHLORIDE 0.9% 1,000 ML IV SCH (16:07)
[2021-03-16] MEDS: DEXT 5% NACL 0.45% KCL 20 MEQ 20 MEQ/1,000 ML BAG IV SCH (20:18)
[2021-03-16] MEDS: traZODone 50 MG TABLET PO SCH (21:19)
[2021-03-16] MEDS: ATORVASTATIN 80 MG TABLET PO SCH (21:19)
[2021-03-17] MEDS: LACTULOSE 20 GM/30 ML UDCUP PO SCH ×6 (03:45→22:56)
[2021-03-17] MEDS: ONDANSETRON 4 MG/2 ML VIAL IV PRN (04:30)
[2021-03-17] MEDS: PANTOPRAZOLE 40 MG TABLET PO SCH (06:09)
[2021-03-17 08:17] LABS: Osmolality,Calculated 317.4 MOS/KG (273-304); Potassium 4.2 MMOL/L (3.5-5.1)
[2021-03-17] MEDS: FUROSEMIDE 40 MG/4 ML VIAL IV SCH (08:33)
[2021-03-17] MEDS: HEPARIN 5,000 UNIT/1 ML VIAL SUBCUT SCH (08:33)
[2021-03-17] MEDS: SPIRONOLACTONE 50 MG TABLET PO SCH (08:42)
[2021-03-17] MEDS: ASPIRIN EC 325 MG TABLET PO SCH (08:42)
[2021-03-17] MEDS: METOCLOPRAMIDE 10 MG/10 ML UDCUP PO SCH ×3 (08:42→16:03)
[2021-03-17] MEDS: IRON (CARBONYL)/VIT C/B12/FA TABLET PO SCH (08:43)
[2021-03-17] MEDS: MONTELUKAST 10 MG TABLET PO SCH (08:43)
[2021-03-17 08:49] LABS: Basophils % 0.5 % (0.0-0.8); Hematocrit 27.4 VOL% (35.7-47.0); Hemoglobin 8.4 GM/DL (12.0-16.0); Immature Granulocytes % 0.3 %; Immature Granulocytes Absolute 0.01 #; Lymphocytes # 0.7 10*3/uL (1.4-4.0); Lymphocytes % 17.4 % (21.3-54.2); Mean Corpuscular HGB Conc 30.7 GM/DL (32-36); Mean Corpuscular Volume 84.6 FL (87-102); Mean Platelet Volume 12.4 FL (9.6-12.0); Monocytes % 10.3 % (1.7-12.7); Neutrophils % 70.5 % (38.7-73.9); Platelet Count 192 T/CUMM (130-400); Red Blood Count 3.24 MC/CUMM (3.8-5.5); Red Cell Distribution Width 17.2 % (9.3-17.3); White Blood Count 3.9 T/CUMM (4-12)
[2021-03-17 09:22] LABS: Hypochromasia 1+; Microcytosis 1+; Ovalocytes Slight
[2021-03-17 09:23] LABS: Acanthocytes Few
[2021-03-17 09:24] LABS: Platelet Estimate Adequate
[2021-03-17] MEDS: DEXT 5% NACL 0.45% KCL 20 MEQ 20 MEQ/1,000 ML BAG IV SCH (14:11)
[2021-03-17] MEDS: DESITIN 4OZ/NYSTATIN 15 GRAM MIXTURE PASTE TOP SCH ×2 (16:03→21:18)
[2021-03-17] MEDS: traZODone 50 MG TABLET PO SCH (22:56)
[2021-03-17] MEDS: ATORVASTATIN 80 MG TABLET PO SCH (22:57)
[2021-03-18] MEDS: LACTULOSE 20 GM/30 ML UDCUP PO SCH ×4 (00:03→12:45)
[2021-03-18 06:22] LABS: Basophils % 0.7 % (0.0-0.8); Eosinophils # 0.1 10*3/uL (0.0-0.87); Eosinophils % 2.1 % (0.00-10.9); Hematocrit 25.1 VOL% (35.7-47.0); Hemoglobin 7.8 GM/DL (12.0-16.0); Immature Granulocytes % 0.9 %; Immature Granulocytes Absolute 0.04 #; Lymphocytes # 0.8 10*3/uL (1.4-4.0); Lymphocytes % 17.5 % (21.3-54.2); Mean Corpuscular HGB Conc 31.1 GM/DL (32-36); Mean Corpuscular Volume 83.4 FL (87-102); Mean Platelet Volume 12.5 FL (9.6-12.0); Neutrophils % 70.8 % (38.7-73.9); Platelet Count 186 T/CUMM (130-400); Red Blood Count 3.01 MC/CUMM (3.8-5.5); Red Cell Distribution Width 17.4 % (9.3-17.3); White Blood Count 4.4 T/CUMM (4-12)
[2021-03-18 06:46] LABS: Osmolality,Calculated 315.4 MOS/KG (273-304); Potassium 4.1 MMOL/L (3.5-5.1)
[2021-03-18] MEDS: PANTOPRAZOLE 40 MG TABLET PO SCH (07:24)
[2021-03-18] MEDS: FUROSEMIDE 40 MG/4 ML VIAL IV SCH (09:29)
[2021-03-18] MEDS: SPIRONOLACTONE 50 MG TABLET PO SCH (09:30)
[2021-03-18] MEDS: IRON (CARBONYL)/VIT C/B12/FA TABLET PO SCH (09:30)
[2021-03-18] MEDS: METOCLOPRAMIDE 10 MG/10 ML UDCUP PO SCH ×2 (09:30→12:45)
[2021-03-18] MEDS: DESITIN 4OZ/NYSTATIN 15 GRAM MIXTURE PASTE TOP SCH (09:31)
[2021-03-18] MEDS: ASPIRIN EC 325 MG TABLET PO SCH (09:31)
[2021-03-18] MEDS: MONTELUKAST 10 MG TABLET PO SCH (09:31)
[2021-03-18 11:40] VITALS: BP 118/68
== END 2021-03-18 13:48 | disposition hospice, home (50) | DRG 391 ==
LOC: EDBD → EDUNIT# → N.ED 15:20 → N.EDINP 18:32 → SUATTDRO 18:32 → N.TELEN 22:06 → N.4E 03-11 14:03
PROVIDERS: ADMIT Internal Medicine; ATTEND Internal Medicine